=== PATIENT | male | born 1955 | race Two or more races ===

== ENCOUNTER 2020-12-20 16:22 | Emergency (ER) | payer OTHER ==
[~2020-12-20] VITALS: Ht 177.8 cm; Wt 78.5 kg
--- NOTE | 2020-12-20 16:40 | NUR ---
BIBSON FROM HOME C/O BLOOD/BLOOD CLOT IN URINE 2DAYS, URINARY RETENTION SINCE 10AM TODAY. AOX4, RR EVEN AND UNLABORED. SAFETY PRECAUTIONS INITIATED PER PROTOCOL
--- NOTE | 2020-12-20 16:45 | NUR ---
PA AT BEDSIDE
--- NOTE | 2020-12-20 17:22 | NUR ---
PT ATTEMPTED TO URINATE X3 WITH LITTLE BLOODY URINE OUTPUT
--- NOTE | 2020-12-20 17:37 | NUR ---
BLADDER SCAN OF 178ML
--- NOTE | 2020-12-20 18:08 | NUR ---
INSERTED F/C 18F WITH DARK HEMATURIA. ;PATENT AND INTACT. CHANGED TO LEG BAG. URINE COLLECTED AND SENT TO LAB
[2020-12-20 18:29] LABS: BILIRUBIN,URINE SMALL (NEGATIVE); COLOR,URINE RED (YELLOW); LEUKOCYTE ESTERASE ,URINE Negative (NEGATIVE); NITRITE, URINE Negative (NEGATIVE); PH,URINE 5.5 (5.0-8.0); PROTEIN,URINE >=300 mg/dl (NEGATIVE); UGLUCOSE >=1000 mg/dL (NEGATIVE); UROBILINOGEN,URINE 0.2 EU/dL (0.2)
[2020-12-20 18:42] LABS: BACTERIA,URINE None seen /HPF (None Seen); RBC,URINE TOO NUMEROUS TO COUN /HPF (0-2); WBC,URINE NONE SEEN /HPF (0-3)
--- NOTE | 2020-12-20 19:04 | NUR ---
TOTAL OF 1400 HEMATURIA OUTPUT. FLUSHED F/C WITH OUTPUT; NO BLOOD CLOTS NOTED . F/C PATENT AND INTACT. PT ambulatory with a steady gait. Patient discharged to home in stable condition. Written and verbal after care instructions given TO PT AND PT'S SON . Patient verbalizes understanding of instruction.
[2020-12-20 19:49] VITALS: BP 145/86
[2020-12-22] MEDS ORDERED: ONDANSETRON HCL/PF 4 MG/2 ML VIAL IVP PRN (13:00)
[2020-12-22] MEDS ORDERED: ZOLPIDEM TARTRATE 5 MG TABLET PO PRN (13:00)
[2020-12-22] MEDS ORDERED: MAG HYDROX/AL HYDROX/SIMETH 30 ML UDC PO PRN (13:00)
[2020-12-22] MEDS ORDERED: Z GUARD REMEDY 2 OZ OINT TP PRN (13:00)
[2020-12-22] MEDS ORDERED: HYDROCODONE/APAP 5/325MG TABLET PO PRN (13:00)
[2020-12-22] MEDS ORDERED: IV 1/2NS 1000 ML 1,000 ML IV PRN (13:00)
[2020-12-22] MEDS ORDERED: MAGNESIUM HYDROXIDE 30 ML UDC PO PRN (13:00)
[2020-12-22] MEDS ORDERED: ACETAMINOPHEN 325 MG TABLET PO PRN (13:00)
[2021-01-02] MEDS ORDERED: VANC750P9 IV (12:34)
== END 2020-12-20 19:11 | disposition home or self-care (01) ==
LOC: ER 17:55
DX: R33.9 Retention of urine, unspecified (principal); I10 Essential (primary) hypertension; E11.9 Type 2 diabetes mellitus without complications; N40.0 Benign prostatic hyperplasia without lower urinary tract symptoms
CPT/HCPCS: 76870-TC; 81001

== ENCOUNTER 2020-12-22 07:17 | Inpatient (IN) | payer OTHER ==
[~2020-12-22] VITALS: Ht 177.8 cm; Wt 75.7 kg
[2020-12-22 08:07] LABS: BASOPHILS % (AUTO) 0.1 % (0.0-2.0); HEMATOCRIT 41 % (39-51); HEMOGLOBIN 13.4 g/dL (13.5-17.5); LYMPHOCYTES # (AUTO) 0.8 K/uL (0.8-4.8); LYMPHOCYTES % (AUTO) 5.7 % (20.0-44.0); MEAN CORPUSCULAR HGB CONC 33 g/dl (31.0-36.0); MEAN CORPUSCULAR VOLUME 95 fL (80-96); MONOCYTES # (AUTO) 0.7 K/uL (0.1-1.30); MONOCYTES % (AUTO) 5.4 % (2.0-12.0); NEUTROPHILS % (AUTO) 88.8 % (43.0-81.0); PLATELET COUNT (AUTO) 239 K/uL (150-450); RED BLOOD CELL COUNT(AUTO) 4.27 MIL/uL (4.5-6.0); WHITE BLOOD COUNT (AUTO) 13.6 K/uL (4.3-11.0)
[2020-12-22] MEDS ORDERED: LIDOCAINE 2% JEL UROJET 10 ML MM ONE ×2 (08:11→08:30)
[2020-12-22 08:12] LABS: CALCIUM, SERUM 9.1 mg/dL (8.5-10.1); CREATININE 1.1 mg/dL (0.6-1.3); POTASSIUM 3.9 mmol/L (3.5-5.1)
[2020-12-22] MEDS ORDERED: TAMS-12 PO (08:44)
[2020-12-22] MEDS ORDERED: ASPI-1420 PO (08:44)
[2020-12-22] MEDS ORDERED: SEMA7TAB PO (08:44)
[2020-12-22] MEDS ORDERED: ERTU15TA PO (08:44)
[2020-12-22] MEDS ORDERED: ATOR10TA PO (08:44)
[2020-12-22] MEDS ORDERED: CLOP75TA15 PO (08:44)
[2020-12-22] MEDS ORDERED: ISOS60TA72 PO (08:44)
[2020-12-22] MEDS ORDERED: METF-442 PO (08:44)
[2020-12-22] MEDS ORDERED: AMLO-213 PO (08:44)
[2020-12-22] MEDS ORDERED: LOSA25TA27 PO (08:44)
[2020-12-22] MEDS ORDERED: CEFTRIAXONE 1GM BAG (ER ONLY) 50 ML IV ONE (08:55)
[2020-12-22] MEDS ORDERED: CEFTRIAXONE 1GM BAG (ER ONLY) 1 GM/50 ML PIGGYBACK IV ONE (09:00)
[2020-12-22 12:00] VITALS: BP 126/77
[2020-12-22 16:00] VITALS: BP 132/68
[2020-12-22 16:52] LABS: PROSTATE SPECIFIC ANTIGEN SCR 5.22 ng/mL (0.00-4.00)
[2020-12-22] MEDS ORDERED: SEMAGLUTIDE 7 MG PO SCH (19:30)
[2020-12-22] MEDS ORDERED: ZOLPIDEM TARTRATE 5 MG TABLET PO PRN (19:33)
[2020-12-22] MEDS ORDERED: Z GUARD REMEDY 2 OZ OINT TP PRN (19:33)
[2020-12-22] MEDS ORDERED: ONDANSETRON HCL/PF 4 MG/2 ML VIAL IVP PRN (19:33)
[2020-12-22] MEDS ORDERED: MAGNESIUM HYDROXIDE 30 ML UDC PO PRN (19:33)
[2020-12-22] MEDS ORDERED: IV 1/2NS 1000 ML 1,000 ML IV PRN (19:33)
[2020-12-22] MEDS ORDERED: HYDROCODONE/APAP 5/325MG TABLET PO PRN (19:33)
[2020-12-22] MEDS ORDERED: ACETAMINOPHEN 325 MG TABLET PO PRN (19:33)
[2020-12-22] MEDS ORDERED: MAG HYDROX/AL HYDROX/SIMETH 30 ML UDC PO PRN (19:33)
[2020-12-22 20:27] VITALS: BP 121/54
[2020-12-23 07:01] LABS: BASOPHILS % (AUTO) 0.2 % (0.0-2.0); EOSINOPHILS % (AUTO) 1.1 % (0.0-6.0); HEMATOCRIT 30 % (39-51); HEMOGLOBIN 10.5 g/dL (13.5-17.5); LYMPHOCYTES # (AUTO) 1.8 K/uL (0.8-4.8); LYMPHOCYTES % (AUTO) 27.4 % (20.0-44.0); MEAN CORPUSCULAR HGB CONC 35 g/dl (31.0-36.0); MEAN CORPUSCULAR VOLUME 94 fL (80-96); MONOCYTES # (AUTO) 0.5 K/uL (0.1-1.30); NEUTROPHILS # (AUTO) 4.2 K/uL (1.8-8.9); NEUTROPHILS % (AUTO) 63.3 % (43.0-81.0); PLATELET COUNT (AUTO) 219 K/uL (150-450); RED BLOOD CELL COUNT(AUTO) 3.23 MIL/uL (4.5-6.0); WHITE BLOOD COUNT (AUTO) 6.7 K/uL (4.3-11.0)
[2020-12-23 07:28] LABS: CALCIUM, SERUM 8.2 mg/dL (8.5-10.1); CREATININE 0.8 mg/dL (0.6-1.3); PHOSPHORUS 3.3 mg/dL (2.5-4.9); POTASSIUM 3.4 mmol/L (3.5-5.1)
[2020-12-23] MEDS ORDERED: PANTOPRAZOLE 40 MG TABLET.DR PO SCH (07:30)
[2020-12-23 07:54] LABS: THYROID STIMULATING HORMONE 1.041 uIU/mL (0.358-3.74)
[2020-12-23 08:00] VITALS: BP 116/59
[2020-12-23 08:18] VITALS: BP 116/69
[2020-12-23] MEDS ORDERED: Medication Not On Formulary EA (Ertugliflozin Pidolate (Steglatro) 15 MG) PO SCH (09:00)
[2020-12-23] MEDS ORDERED: AMLODIPINE BESYLATE 10 MG TABLET PO SCH (09:00)
[2020-12-23] MEDS ORDERED: METFORMIN 500 MG TABLET PO SCH (09:00)
[2020-12-23] MEDS ORDERED: ATORVASTATIN 10 MG TABLET PO SCH (09:00)
[2020-12-23] MEDS ORDERED: ISOSORBIDE MONONITRATE (30MG) 30 MG TAB.SR.24H PO SCH (09:00)
[2020-12-23] MEDS ORDERED: TAMSULOSIN 0.4 MG CAP.SR.24H PO SCH (09:00)
[2020-12-23] MEDS ORDERED: LOSARTAN POTASSIUM 25 MG TABLET PO SCH (09:00)
[2020-12-23] MEDS ORDERED: CLOPIDOGREL BISULFATE 75 MG TABLET PO SCH (09:00)
[2020-12-23] MEDS ORDERED: ASPIRIN EC 81 MG TABLET.DR PO SCH (09:00)
[2020-12-23] MEDS ORDERED: POTASSIUM CHLORIDE 20 MEQ TAB.PRT.SR PO SCH (10:00)
[2021-01-02] MEDS ORDERED: VANC750P9 IV (12:34)
== END 2020-12-23 13:30 | disposition home health service (06) | DRG 466 ==
LOC: ER 07:30 → MED 11:28
PROVIDERS: ATTEND Internal Medicine
DX: T83.098A Other mechanical complication of other urinary catheter, initial encounter (principal); E11.9 Type 2 diabetes mellitus without complications; R31.0 Gross hematuria; I10 Essential (primary) hypertension; K21.9 Gastro-esophageal reflux disease without esophagitis; N40.1 Benign prostatic hyperplasia with lower urinary tract symptoms; Z20.822 Contact with and (suspected) exposure to COVID-19; I25.10 Atherosclerotic heart disease of native coronary artery without angina pectoris; R33.8 Other retention of urine; Z98.61 Coronary angioplasty status; Z86.73 Personal history of transient ischemic attack (TIA), and cerebral infarction without residual deficits; Z98.890 Other specified postprocedural states; E78.5 Hyperlipidemia, unspecified; Y84.8 Other medical procedures as the cause of abnormal reaction of the patient, or of later complication, without mention of misadventure at the time of the procedure; Y92.009 Unspecified place in unspecified non-institutional (private) residence as the place of occurrence of the external cause
CPT/HCPCS: 36415; 80048-TC; 80061-TC; 83735-TC; 84100-TC; 84153-TC; 84154-TC; 84443-TC; 85025-TC; 87081-TC; 97116-TC; 97530-TC; A4217; G0378; J0696; J3490

== ENCOUNTER 2020-12-29 21:53 | Inpatient (IN) | payer OTHER ==
[~2020-12-29] VITALS: Ht 177.8 cm; Wt 80.7 kg
[~2020-12-29 21:53] MED LIST: AMLO-213 PO; ASPI-1420 PO; ATOR10TA PO; CLOP75TA15 PO; ERTU15TA PO; ISOS60TA72 PO; LOSA25TA27 PO; METF-442 PO; SEMA7TAB PO; TAMS-12 PO
--- NOTE | 2020-12-29 22:00 | NUR ---
[id number]. FEVER, CHILLS AND TACHYCARDIC TEMP 102.1 HR 142. PT A/OX3. TOLERATING R/A WELL. CONNTECTED PT TO TELE MONITOR AND POX. COOLING AND SAFETY MEASURES IN PLACE
[2020-12-29] MEDS ORDERED: ACETAMINOPHEN ES 500 MG TABLET ONE ×2 (22:27)
[2020-12-29] MEDS ORDERED: IV NS 0.9% 1,000 ML BAG IV ONE ×2 (22:30→23:30)
[2020-12-29] MEDS ORDERED: ACETAMINOPHEN ES 500 MG TABLET PO ONE (22:30)
--- NOTE | 2020-12-29 22:30 | NUR ---
ETL DATABASE DEVELOPER AT PT'S BEDSIDE
--- NOTE | 2020-12-29 22:46 | NUR ---
MORTGAGE PROFESSIONAL LAC #18G S/L; PATENT AND INTACT
[2020-12-29 22:47] LABS: BASOPHILS % (AUTO) 0.4 % (0.0-2.0); EOSINOPHILS % (AUTO) 0.2 % (0.0-6.0); HEMATOCRIT 31 % (39-51); HEMOGLOBIN 10.2 g/dL (13.5-17.5); LYMPHOCYTES # (AUTO) 0.3 K/uL (0.8-4.8); LYMPHOCYTES % (AUTO) 4.2 % (20.0-44.0); MEAN CORPUSCULAR HGB CONC 33 g/dl (31.0-36.0); MEAN CORPUSCULAR VOLUME 96 fL (80-96); MONOCYTES # (AUTO) 0.1 K/uL (0.1-1.30); MONOCYTES % (AUTO) 0.8 % (2.0-12.0); NEUTROPHILS # (AUTO) 6.6 K/uL (1.8-8.9); NEUTROPHILS % (AUTO) 94.4 % (43.0-81.0); PLATELET COUNT (AUTO) 348 K/uL (150-450); RED BLOOD CELL COUNT(AUTO) 3.22 MIL/uL (4.5-6.0)
[2020-12-29 23:14] LABS: ALANINE AMINOTRANSFERASE 30 U/L (12-78); ALBUMIN 3.7 g/dL (3.4-5.0); ALKALINE PHOSPHATASE 72 U/L (46-116); ASPARTATE AMINOTRANSFERASE 18 U/L (15-37); BILIRUBIN,DIRECT 0.1 mg/dL (0.0-0.2); BILIRUBIN,TOTAL 0.4 mg/dL (0.2-1.0); CALCIUM, SERUM 8.2 mg/dL (8.5-10.1); CARBON DIOXIDE 25 mmol/L (21-32); CHLORIDE 105 mmol/L (98-107); GLUCOSE 216 mg/dL (74-106); POTASSIUM 3.9 mmol/L (3.5-5.1); SODIUM SERUM 139 mmol/L (136-145); TOTAL PROTEIN, SERUM 7.1 g/dL (6.4-8.2); UREA NITROGEN, BLOOD 15 mg/dL (7-18)
--- NOTE | 2020-12-29 23:21 | NUR ---
MANAGER BATTERY AT PT'S BEDSIDE
[2020-12-29] MEDS ORDERED: LIDOCAINE 2% JEL UROJET 10 ML MM ONE (23:24)
[2020-12-29] MEDS ORDERED: CEFTRIAXONE 1GM BAG (ER ONLY) 50 ML IV ONE (23:30)
--- NOTE | 2020-12-29 23:30 | NUR ---
SNACK BAR COOK AT BED SIDE; COLLECTED BLOOK WORK. URINE SAMMPLE AND COVID SWAB TAKEN VIA PHOTOVOLTAIC FABRICATION TECHNICIAN COLLECTED AND GIVEN TO LAB
--- NOTE | 2020-12-29 23:47 | NUR ---
INSERTED F/C 16FR WITH CLEAR YELLOW URINE OUTPUT.
[2020-12-30 00:05] LABS: BILIRUBIN,URINE NEGATIVE (NEGATIVE); COLOR,URINE YELLOW (YELLOW); LEUKOCYTE ESTERASE ,URINE NEGATIVE (NEGATIVE); NITRITE, URINE NEGATIVE (NEGATIVE); PH,URINE 5.5 (5.0-8.0); PROTEIN,URINE NEGATIVE (NEGATIVE); UGLUCOSE >=1000 mg/dL (NEGATIVE); UROBILINOGEN,URINE 0.2 EU/dL (0.2)
[2020-12-30] MEDS ORDERED: CEFTRIAXONE 1GM BAG (ER ONLY) 50 ML IV ONE (00:11)
[2020-12-30] MEDS ORDERED: IV NS 0.9% 500 ML BAG IV ONE (00:30)
[2020-12-30 00:46] LABS: BACTERIA,URINE None seen /HPF (None Seen); RBC,URINE 0-2 /HPF (0-2); SQUAMOUS EPITHELIAL CELL,UR Few /HPF (None Seen); WBC,URINE 0-2 /HPF (0-3)
--- NOTE | 2020-12-30 01:17 | NUR ---
DR DARLING ON THE PHONE W/ DR PATEL
--- NOTE | 2020-12-30 01:17 | NUR ---
called house sup for tele bed
[2020-12-30] MEDS ORDERED: IOHEXOL-300 100 ML VIAL IV ONE (01:20)
[2020-12-30] MEDS ORDERED: CT SWABBABLE VALVE TRANS SET 1 EA INFUS.SET MC ONE (01:20)
[2020-12-30] MEDS ORDERED: IV NS 0.9% 250 ML IV ONE (01:20)
[2020-12-30] MEDS ORDERED: MAGNESIUM HYDROXIDE 30 ML UDC PO PRN (01:30)
[2020-12-30] MEDS ORDERED: Z GUARD REMEDY 2 OZ OINT TP PRN (01:30)
[2020-12-30] MEDS ORDERED: MAG HYDROX/AL HYDROX/SIMETH 30 ML UDC PO PRN (01:30)
[2020-12-30] MEDS ORDERED: ACETAMINOPHEN 325 MG TABLET PO PRN (01:30)
[2020-12-30] MEDS ORDERED: ZOLPIDEM TARTRATE 5 MG TABLET PO PRN (01:30)
[2020-12-30] MEDS ORDERED: ONDANSETRON HCL/PF 4 MG/2 ML VIAL IVP PRN (01:30)
--- NOTE | 2020-12-30 01:55 | NUR ---
back from CT
--- NOTE | 2020-12-30 02:35 | NUR ---
TELE 329 REPORT GIVEN
--- NOTE | 2020-12-30 02:37 | NUR ---
MRSA SWAB COLLECTED AND SENT TO LAB. PATIENT'S BELONGINGS LIST DONE.
--- NOTE | 2020-12-30 02:55 | NUR ---
PT TRANSFERRED TO [facility] VIA ACLS PROTOCOL
--- NOTE | 2020-12-30 02:56 | NUR ---
RN ADMITTING NOTE REPORT GIVEN BY RONY GROVES. PATIENT RECEIVED VIA GURNEY TO RM 329-1 BEING ADMITTED TO TELE FOR SEPSIS. PATIENT IS A/O X 4, PATIENT UNDERSTANDS SOME DIVEHI BUT MOSTLY FARSI/AFGHAN. PATIENT IS ON RA, TOLERATING WELL, NOT IN ANY APPARENT DISTRESS. TELE MONITOR READS SINUS TACH 112 BPM. PATIENT HAS A PRIDE PLACED IN THE ER, DRAINING YELLOW URINE. PATIENT HAS INDEPENDENT MOBILITY IN BED, SKIN IS INTACT. PATIENT HAS A RAC 18 G, PATENT AND INTACT. DOES NOT REPORT ANY PAIN AT THIS TIME. BELONGINGS INVENTORIED. ORIENTED PATIENT TO ROOM, RN, WELDING MACHINE OPERATOR GAS, AND CHARGE NURSE. PATIENT WISHES TO BE FULL CODE. SAFETY MEASURES IN PLACE: CALL LIGHT WITHIN REACH, SIDE RAILS UP, BED LOCKED AND IN LOWEST POSITION. WILL MONITOR PATIENT CLOSELY.
[2020-12-30] MEDS: IV NS 0.9% 1,000 ML IV PRN ×3 (03:21→20:46)
[2020-12-30 04:00] VITALS: BP 116/59
--- NOTE | 2020-12-30 06:18 | NUR ---
DR. PATEL HAS ORDERED ACCUCHECK ACHS, PATIENT NPO
[2020-12-30] MEDS ORDERED: DEXTROSE 50%-WATER 50 ML DISP.SYRIN IV PRN (06:30)
--- NOTE | 2020-12-30 06:51 | NUR ---
RN CLOSING NOTE PATIENT IN BED, ASLEEP. EASILY AROUSED. PATIENT TOLERATING ROOM AIR, NOT IN ANY APPARENT DISTRESS. NO REPORTS OF PAIN OR DISCOMFORT. LAC 18 G PATENT AND INTACT, RUNNING NS @ 125 ML/HR. SAFETY MEASURES IN PLACE: BED LOCKED AND IN LOWEST POSITION, CALL LIGHT WITHIN REACH, SIDE RAILS UP. BS 137 MG/DL, NO COVERAGE GIVEN D/T NPO STATUS. NPO STATUS MAINTAINED. WILL ENDORSE TO DAY SHIFT NURSE FOR MALVIN. Addendum: 12/30/20 at 0654 by ART LARSEN RN TELE MONITOR READS ST 101 BPM.
--- NOTE | 2020-12-30 07:00 | NUR ---
EMR SPECIALIST OPENING NOTES: PATIENT IN AWAKE,ALERT AND ORIENTED X 4.DENIES PAIN AND DISCOMFORT,NOT IN ANY DISTRESS.CALL LIGHT WITHIN REACH,SAFETY MEASURES IN PLACE.WITH ON GOING IVF OF NS AT 125ML/HR ON THE LEFT AC 18 GAUGE.PLACED ON NPO FOR NOW,PRIDE CATH DRAINING WELL WITH LIGHT YELLOW URINE OUTPUT.REMAINS ON IV ANTIBIOTICS ORDERED.WE WILL CONTINUE TO MONITOR.
[2020-12-30] MEDS: BLOOD SUGAR DIAGNOSTIC 1 EACH STRIP IN SCH ×4 (07:30→22:03)
[2020-12-30 08:00] VITALS: BP 111/63
[2020-12-30] MEDS: PANTOPRAZOLE 40 MG TABLET.DR PO SCH (08:44)
[2020-12-30 12:00] VITALS: BP 140/68
[2020-12-30 13:09] LABS: BASOPHILS % (AUTO) 0.1 % (0.0-2.0); HEMATOCRIT 31 % (39-51); HEMOGLOBIN 10.4 g/dL (13.5-17.5); LYMPHOCYTES # (AUTO) 0.5 K/uL (0.8-4.8); MEAN CORPUSCULAR HGB CONC 33 g/dl (31.0-36.0); MEAN CORPUSCULAR VOLUME 97 fL (80-96); MONOCYTES # (AUTO) 0.4 K/uL (0.1-1.30); MONOCYTES % (AUTO) 2.4 % (2.0-12.0); NEUTROPHILS # (AUTO) 15.5 K/uL (1.8-8.9); NEUTROPHILS % (AUTO) 94.5 % (43.0-81.0); PLATELET COUNT (AUTO) 305 K/uL (150-450); RED BLOOD CELL COUNT(AUTO) 3.23 MIL/uL (4.5-6.0); WHITE BLOOD COUNT (AUTO) 16.4 K/uL (4.3-11.0)
[2020-12-30 13:28] LABS: ALBUMIN 3.4 g/dL (3.4-5.0); BILIRUBIN,DIRECT 0.1 mg/dL (0.0-0.2); BILIRUBIN,TOTAL 0.6 mg/dL (0.2-1.0); CALCIUM, SERUM 8.1 mg/dL (8.5-10.1); CREATININE 0.8 mg/dL (0.6-1.3); POTASSIUM 4.2 mmol/L (3.5-5.1); TOTAL PROTEIN, SERUM 6.8 g/dL (6.4-8.2)
[2020-12-30] MEDS ORDERED: ZOSYN IVPB 3.375 G in IV D5W 50ml IV ONE (14:00)
[2020-12-30 16:00] VITALS: BP 131/68
--- NOTE | 2020-12-30 19:30 | NUR ---
BREAKER OILER OPENING NOTES PATIENT RESTING IN BED, ALERT/ORIENTED X 4, PRIMARILY LAO/FARSI SPEAKING BUT ABLE TO UNDERSTAND/SPEAK SOME [place] ISLANDER. PT DENIES PAIN AT THIS TIME. PT STABLE ON RA, NO S/S OF DISTRESS OR SOB NOTED, BREATHING EVEN AND UNLABORED. PT ON EXTERNAL INTERIOR DESIGN CONSULTANT READING SINUS TACHYCARDIA, HR: 106. IV ACCESS ON LEFT AC #18G INTACT AND RUNNING NS @125 ML/HR. PRIDE CATHETER INTACT AND DRAINING CLEAR YELLOW URINE. SAFETY MEASURES IN PLACE: CALL LIGHT AND TABLE WITHIN REACH, SIDE RAILS UP X 2, BED LOCKED IN LOW POSITION. WILL CONTINUE TO MONITOR PATIENT
[2020-12-30 20:08] VITALS: BP 138/71
[2020-12-30] MEDS: PIPERACILLIN /TAZOBACTAM 3.375 G in IV D5W 100 ML IV SCH (20:46)
[2020-12-30] MEDS ORDERED: CEFTRIAXONE 1 G in IV D5W 50 ML IV SCH (21:00)
[2020-12-31 00:08] VITALS: BP 126/67
[2020-12-31 04:28] VITALS: BP 132/68
[2020-12-31] MEDS: PIPERACILLIN /TAZOBACTAM 3.375 G in IV D5W 100 ML IV SCH ×3 (05:09→20:30)
--- NOTE | 2020-12-31 07:16 | NUR ---
TOLL OPERATOR OPENING NOTES RECEIVED PATIENT IN BED AWAKE, ALERT/ORIENTED X 4. NOT IN ANY DISTRESS, DENIES PAIN AND DISCOMFORT AT THIS TIME. PATIENT IS ON ROOM AIR WITH EQUAL AND UNLABORED BREATHING. WITH RIGHT HAND IV ACCESS G22 WITH IVF OF NS RUNNIGN AT 125 ML/HR, INFUSING WELL. SAFETY MNEASURES ENSURED WITH BED AT LOWEST LOCKED POSITION, SIDERAILS RAISED. CALL LIGHT AND TABLE WITHIN REACH. WILL CONTINUE TO MONITOR PATIENT.
[2020-12-31 07:32] LABS: BASOPHILS % (AUTO) 0.2 % (0.0-2.0); EOSINOPHILS % (AUTO) 0.1 % (0.0-6.0); HEMATOCRIT 29 % (39-51); HEMOGLOBIN 10.2 g/dL (13.5-17.5); LYMPHOCYTES # (AUTO) 0.8 K/uL (0.8-4.8); LYMPHOCYTES % (AUTO) 7.5 % (20.0-44.0); MEAN CORPUSCULAR HGB CONC 35 g/dl (31.0-36.0); MEAN CORPUSCULAR VOLUME 94 fL (80-96); MONOCYTES # (AUTO) 0.5 K/uL (0.1-1.30); NEUTROPHILS % (AUTO) 87.2 % (43.0-81.0); PLATELET COUNT (AUTO) 276 K/uL (150-450); RED BLOOD CELL COUNT(AUTO) 3.11 MIL/uL (4.5-6.0); WHITE BLOOD COUNT (AUTO) 10.4 K/uL (4.3-11.0)
[2020-12-31 07:43] LABS: MAGNESIUM 2.2 mg/dL (1.8-2.4); PHOSPHORUS 2.9 mg/dL (2.5-4.9); POTASSIUM 3.7 mmol/L (3.5-5.1)
[2020-12-31 07:52] LABS: THYROID STIMULATING HORMONE 1.373 uIU/mL (0.358-3.74)
[2020-12-31 08:00] VITALS: BP 114/62
[2020-12-31] MEDS: PANTOPRAZOLE 40 MG TABLET.DR PO SCH (08:20)
[2020-12-31] MEDS: BLOOD SUGAR DIAGNOSTIC 1 EACH STRIP IN SCH ×4 (08:23→22:10)
[2020-12-31] MEDS ORDERED: VANCOMYCIN 1.5 GM in IV D5W 500 ML IV ONE (13:00)
[2020-12-31 16:00] VITALS: BP 120/68
[2020-12-31] MEDS: IV NS 0.9% 1,000 ML IV PRN (17:54)
--- NOTE | 2020-12-31 18:52 | NUR ---
TRUCK JUMPER OPENING NOTES PATIENT IN BED AWAKE, ALERT/ORIENTED X 4. NOT IN ANY DISTRESS, DENIES PAIN AND DISCOMFORT AT THIS TIME. PATIENT IS ON ROOM AIR WITH EQUAL AND UNLABORED BREATHING. WITH RIGHT HAND IV ACCESS G22 WITH IVF OF NS RUNNING AT 125 ML/HR, INFUSING WELL. SAFETY MNEASURES ENSURED WITH BED AT LOWEST LOCKED POSITION, SIDERAILS RAISED. CALL LIGHT AND TABLE WITHIN REACH. WILL ENDORSE PATIENT FOR CONTINUITY OF CARE.
--- NOTE | 2020-12-31 20:00 | NUR ---
GRADES 1 THROUGH 6 TEACHER OPENING NOTES PATIENT RESTING IN BED, ALERT/ORIENTED X 4, PRIMARILY FARSI SPEAKING BUT ABLE TO UNDERSTAND/SPEAK SOME FRISIAN. PT DENIES PAIN AT THIS TIME. PT STABLE ON RA, NO S/S OF DISTRESS OR SOB NOTED, BREATHING EVEN AND UNLABORED. PT ON EXTERNAL CONSERVATION ENFORCEMENT OFFICER READING SINUS RHYTHM, HR: 88. IV ACCESS ON RIGHT HAND #22G INTACT AND RUNNING NS @125 ML/HR. PRIDE CATHETER INTACT AND DRAINING CLEAR YELLOW URINE. SAFETY MEASURES IN PLACE: CALL LIGHT AND TABLE WITHIN REACH, SIDE RAILS UP X 2, BED LOCKED IN LOW POSITION. WILL CONTINUE TO MONITOR PATIENT
[2020-12-31 20:07] VITALS: BP 120/65
[2021-01-01 00:33] VITALS: BP 127/66
[2021-01-01] MEDS: VANCOMYCIN 1.25 GM in IV D5W 250 ML IV SCH ×2 (01:16→12:20)
[2021-01-01 04:44] VITALS: BP 125/65
[2021-01-01] MEDS: PIPERACILLIN /TAZOBACTAM 3.375 G in IV D5W 100 ML IV SCH ×2 (05:26→12:14)
--- NOTE | 2021-01-01 07:00 | NUR ---
STATISTICAL PROGRAMMER ANALYST CLOSING NOTES PT AWAKE IN BED, ALERT/ORIENTED X 4, NO SIGNIFICANT CHANGES THROUGHOUT SHIFT. PT STABLE ON RA, NO S/S OF DISTRESS OR SOB NOTED, BREATHING EVEN AND UNLABORED. MEDICATIONS GIVEN ORDERED, PT NEEDS MET THROUGHOUT SHIFT. SAFETY MEASURES IN PLACE: CALL LIGHT WITHIN REACH, BED LOCKED IN LOW POSITION, SIDE RAILS UP X 2, BED ALARM ON. ENDORSE TO DAY SHIFT NURSE FOR CONTINUITY OF CARE
[2021-01-01] MEDS: BLOOD SUGAR DIAGNOSTIC 1 EACH STRIP IN SCH ×4 (07:06→21:37)
[2021-01-01 07:27] LABS: CALCIUM, SERUM 8.1 mg/dL (8.5-10.1); CREATININE 0.8 mg/dL (0.6-1.3); POTASSIUM 3.6 mmol/L (3.5-5.1)
--- NOTE | 2021-01-01 07:34 | NUR ---
CUSTOMER QUALITY ENGINEER OPENING NOTES PATIENT IS ASLEEP IN BED, EASY TO AROUSE. ALERT AND ORIENTED X4, FARSI SPEAKING. NO SOB. NO S/SX OF DISTRESS NOTED. BREATHING IS EVEN AND UNLABORED. PT ON ROOM AIR, TOLERATING WELL. IV ACCESS RHAND#22 PATENT AND INTACT. PT WITH EXTERNAL RESTAURANT AND BAR MANAGER WITH SR READING IN 80'S. SAFETY MEASURES IN PLACE WITH BED LOCKED AT LOW POSITION AND SIDE RAILS UP X2. CALL LIGHT IS WITHIN REACH. WILL CONTINUE TO MONITOR THROUGHOUT SHIFT.
[2021-01-01] MEDS ORDERED: VANCOMYCIN 1.25 GM in IV D5W 250 ML IV SCH (08:00)
[2021-01-01] MEDS: PANTOPRAZOLE 40 MG TABLET.DR PO SCH (08:16)
[2021-01-01] MEDS: IV NS 0.9% 1,000 ML IV PRN (17:08)
--- NOTE | 2021-01-01 19:12 | NUR ---
ADMINISTRATIVE SUPPORT ASSOC CLOSING NOTES PATIENT IS RESTING COMFORTABLY IN BED. NO SOB. NO S/SX OF DISTRESS NOTED. BREATHING IS EVEN AND UNLABORED. PT ON ROOM AIR, TOLERATING WELL. IV ACCESS RHAND#22 PATENT AND INTACT WITH NS 0.9 INFUSING. EXTERNAL DESIGN CENTER CONSULTANT WITH SR READING IN 80'S. SAFETY MEASURES MAINTAINED. ALL NEEDS MET THROUGHOUT SHIFT. WILL ENDORSE CONTINUITY OF CARE TO ONCOMING SHIFT.
--- NOTE | 2021-01-01 19:45 | NUR ---
MUCK BOSS OPENING NOTES PATIENT IS ASLEEP IN BED, EASY TO AROUSE. ALERT AND ORIENTED X4, FARSI SPEAKING. NO SOB.. BREATHING IS EVEN AND UNLABORED. PT ON ROOM AIR, TOLERATING WELL. IV ACCESS R HAND#22 PATENT AND INTACT. PT. WITH F.C, DRAINING YELLOWISH URINE, INTACT .PT WITH EXTERNAL BOX CAR LOADER WITH SR READING IS 87. SAFETY MEASURES IN PLACE WITH BED LOCKED AT LOW POSITION AND SIDE RAILS UP X2. CALL LIGHT IS WITHIN EASY REACH. WILL CONTINUE TO MONITOR THROUGHOUT SHIFT.
[2021-01-01 20:23] VITALS: BP 141/68
[2021-01-02] VITALS: BP 118/48
--- NOTE | 2021-01-02 02:00 | NUR ---
RN NOTES VANCO THROUGH CAME IN LATE RESULT IS 12, VANCOMYCIN INFUSED ORDERED.
[2021-01-02] MEDS: VANCOMYCIN 1.25 GM in IV D5W 250 ML IV SCH ×2 (02:02→13:18)
[2021-01-02 05:11] VITALS: BP 130/95
[2021-01-02] MEDS: BLOOD SUGAR DIAGNOSTIC 1 EACH STRIP IN SCH ×4 (05:47→22:51)
--- NOTE | 2021-01-02 06:27 | NUR ---
JAVA SCALA DEVELOPER CLOSING NOTES PT AWAKE IN BED, ALERT/ORIENTED X 4, NO SIGNIFICANT CHANGES THROUGHOUT SHIFT. PT STABLE ON RA, NO S/S OF DISTRESS OR SOB NOTED, BREATHING EVEN AND UNLABORED. PATIENT WITH IVF NS AT 125 ML/HR, INFUSING WELL. PT. WITH F.C INTACT AND DRAINING YELLOWISH URINE.MEDICATIONS GIVEN ORDERED, PT NEEDS MET THROUGHOUT SHIFT. SAFETY MEASURES IN PLACE. CALL LIGHT WITHIN REACH, BED LOCKED IN LOW POSITION, SIDE RAILS UP X 2, BED ALARM ON. ENDORSE TO DAY SHIFT NURSE FOR CONTINUITY OF CARE
[2021-01-02] MEDS: IV NS 0.9% 1,000 ML IV PRN (06:53)
--- NOTE | 2021-01-02 07:30 | NUR ---
WIRING TECHNICIAN OPENING NOTES RECEIVED PATIENT AWAKE IN BED. ALERT AND ORIENTED X4, FARSI SPEAKING. ABLE TO MAKE NEEDS KNOWN. NO SOB, NO RESPIRATORY DISTRESS NOTED. BREATHING IS EVEN AND UNLABORED. PT ON ROOM AIR, TOLERATING WELL. IV ACCESS R HAND#22 PATENT AND INTACT. PT. WITH F.C, DRAINING YELLOWISH URINE, INTACT .PT WITH EXTERNAL AQUACULTURE AND FISHERIES PROFESSOR WITH SR =90. SAFETY MEASURES IN PLACE . BED LOCKED AT LOW POSITION AND SIDE RAILS UP X2. CALL LIGHT AND TABLE WITHIN EASY REACH. WILL CONTINUE TO MONITOR .
[2021-01-02] MEDS: PANTOPRAZOLE 40 MG TABLET.DR PO SCH (07:37)
[2021-01-02 08:00] VITALS: BP 146/73
[2021-01-02 08:00] LABS: BASOPHILS % (AUTO) 0.2 % (0.0-2.0); EOSINOPHILS % (AUTO) 0.2 % (0.0-6.0); HEMATOCRIT 30 % (39-51); HEMOGLOBIN 10.3 g/dL (13.5-17.5); LYMPHOCYTES # (AUTO) 1.4 K/uL (0.8-4.8); LYMPHOCYTES % (AUTO) 13.3 % (20.0-44.0); MEAN CORPUSCULAR HGB CONC 34 g/dl (31.0-36.0); MEAN CORPUSCULAR VOLUME 92 fL (80-96); MONOCYTES # (AUTO) 0.7 K/uL (0.1-1.30); NEUTROPHILS # (AUTO) 8.1 K/uL (1.8-8.9); NEUTROPHILS % (AUTO) 79.3 % (43.0-81.0); PLATELET COUNT (AUTO) 307 K/uL (150-450); RED BLOOD CELL COUNT(AUTO) 3.25 MIL/uL (4.5-6.0); WHITE BLOOD COUNT (AUTO) 10.2 K/uL (4.3-11.0)
[2021-01-02 08:58] LABS: CREATININE 0.7 mg/dL (0.6-1.3); PHOSPHORUS 2.9 mg/dL (2.5-4.9); POTASSIUM 3.8 mmol/L (3.5-5.1)
--- NOTE | 2021-01-02 12:29 | NUR ---
RN NOTES BLOOD SUGAR CHECKED, 155 MG/DL. NO INSULIN COVERAGE NEEDED.
[2021-01-02] MEDS ORDERED: VANC750P9 IV (12:34)
--- NOTE | 2021-01-02 15:52 | NUR ---
RN NOTES FOR PICC LINE INSERTION PRIOR TO DISCHARGE. PATIENT WILL BE ON IV VANCO Q12 X 14 DAYS.
--- NOTE | 2021-01-02 18:30 | NUR ---
VET TECH CLOSING NOTES PATIENT AWAKE IN BED. ALERT AND ORIENTED X4, FARSI SPEAKING. ABLE TO MAKE NEEDS KNOWN. NO SOB, NO RESPIRATORY DISTRESS NOTED. BREATHING IS EVEN AND UNLABORED. PT ON ROOM AIR, TOLERATING WELL. IV ACCESS R HAND#22 PATENT AND INTACT. PT. WITH F.C, DRAINING YELLOWISH URINE, INTACT .PT WITH EXTERNAL COLD REDUCTION ROLLER WITH SR =90. ALL DUE MEDS GIVEN ORDERED.SAFETY MEASURES IN PLACE . BED LOCKED AT LOW POSITION AND SIDE RAILS UP X2. CALL LIGHT AND TABLE WITHIN EASY REACH. WILL ENDORSE TO ONCOMING SHIFT NURSE FOR MALVIN .
--- NOTE | 2021-01-02 19:47 | NUR ---
CANE FLUME WATCHER OPENING PATIENT IN BED, A/OX4. NO S/S OF APPARENT DISTRESS. DENIES PAIN. TELE MONITOR READING NSR AT 93 BPM. NO FLUIDS RUNNING AT THIS TIME. SAFETY IN PLACE. WILL CONTINUE TO MONITOR. PATIENT EXPECTED FOR D/C TONIGHT HOME WITH HOME HEALTH AFTER PICC LINE INSERTION.
[2021-01-02 20:00] VITALS: BP 140/79
--- NOTE | 2021-01-02 22:23 | NUR ---
PRINCIPAL SECRETARY NOTE TALKED TO GRUPO HATCH RN.. PER GRUPO MIDLINE WOULD DO FOR PATIENT SINCE IT IS ONLY FOR 14 DAYS. PER GRUPO JUST PUT IN THE ORDER FOR THE MIDLINE INSERTION AND HE WILL TALK TO BHUPINDER MENDOZA WHO PUT IN THE ORDER. I PUT IN THE ORDER FOR THE MIDLINE INSERTION BUT HAVE NOT YET CANCELLED THE ONE FOR THE PICC LINE. WILL DO SO WHEN GRUPO IS HERE.
--- NOTE | 2021-01-02 23:12 | NUR ---
BRIMMING MACHINE OPERATOR NOTE GRUPO AT THE BED SIDE AT THIS TIME FOR MIDLINE INSERTION. PER GRUPO ROE KNOWS AND AGREES FOR MIDLINE INSTEAD OF PICC.
--- NOTE | 2021-01-02 23:15 | NUR ---
ANTHROPOLOGY LECTURER NOTE TALKED TO PATIENT IF HE WANTS TO STAY THE NIGHT BUT IT MIGHT BE ADDITIONAL PAYMENT SINCE INSURANCE MIGHT NOT COVER, ENDORSED TO ME BY ANTONIO MARLOW. PER PATIENT HE WANTS TO GO HOME. CALLED SON FOR PICK-UP. TELE MONITOR BOX TAKEN OFF OF PATIENT. PRIDE CATHETER EMPTIED. PATIENT WILL GET DRESSED AND BE READY TO GO HOME.
--- NOTE | 2021-01-02 23:45 | NUR ---
CHIP BIN CONVEYOR TENDER NOTE PATIENT ROLLED DOWN AT THIS TIME VIA WHEELCHAIR, ACCOMPANIED BY GARRY LEONARDO. SONKASSI CAME FOR ORDER PROCESSING SPECIALIST VIA PRIVATE TRANSPORTATION. PATIENT GOING HOME WITH PRIDE, PATIENT AND SON AWARE. PATIENT ACKNOWLEDGE THAT HE IS GOING TO SEE UROLOGIST A WEEK LATER. PATIENT GOING HOME WITH L.UA MIDLINE 18 G. ENDORSED TO ME BY MORNING RNELE THAT MEDICATION PRESCRIPTION SENT TO PHARMACY ALREADY, PATIENT AND SON AWARE ABOUT HOME HEALTH AND MEDICATION. PATIENT SIGNED DISCHARGED PAPER WORKS AND BELONGINGS SIGNED FOR. D/C PACKET GIVEN TO SEAMUS SOLITARIO. ID BAND TAKEN OFF AND DISCARDED. PERIPHERAL IV DISCARDED. ALL BELONGINGS WITH PATIENT. PATIENT IN STABLE CONDITION AT DISCHARGED.
== END 2021-01-02 23:45 | disposition home or self-care (01) | DRG 720 ==
LOC: ER 22:06 → TELE 12-30 02:37
PROVIDERS: ADMIT Nurse Practitioner Acute Care; ATTEND Nurse Practitioner Acute Care
PROC: 05HC33Z Insertion of Infusion Device into Left Basilic Vein, Percutaneous Approach (ICD-10-PCS; principal; 2021-01-02)
DX: A41.9 Sepsis, unspecified organism (principal); N12 Tubulo-interstitial nephritis, not specified as acute or chronic; E11.9 Type 2 diabetes mellitus without complications; I10 Essential (primary) hypertension; N40.1 Benign prostatic hyperplasia with lower urinary tract symptoms; R31.0 Gross hematuria; K21.9 Gastro-esophageal reflux disease without esophagitis; N20.0 Calculus of kidney; Z20.822 Contact with and (suspected) exposure to COVID-19; Z95.5 Presence of coronary angioplasty implant and graft; I25.10 Atherosclerotic heart disease of native coronary artery without angina pectoris; Z79.899 Other long term (current) drug therapy; Z98.890 Other specified postprocedural states; Z79.82 Long term (current) use of aspirin; Z79.02 Long term (current) use of antithrombotics/antiplatelets; Z86.73 Personal history of transient ischemic attack (TIA), and cerebral infarction without residual deficits; Z79.84 Long term (current) use of oral hypoglycemic drugs; E78.5 Hyperlipidemia, unspecified; N30.90 Cystitis, unspecified without hematuria; B95.7 Other staphylococcus as the cause of diseases classified elsewhere
CPT/HCPCS: 36415; 71045-TC; 76700-TC; 80048-TC; 80053-TC; 80076-TC; 80202-TC; 81001; 82150-TC; 82962-TC; 83605-TC; 83690-TC; 83735-TC; 84100-TC; 84443-TC; 84484-TC; 85025-TC; 85730-TC; 86803; 87040-TC; 87081-TC; 87086-TC; 87186-TC; 87806; C9803; G0378; J0696; J2543; J3370; J3490; J7030; J7040; J7050; J7060; Q9967

== ENCOUNTER 2021-01-21 10:21 | Emergency (ER) | payer OTHER ==
[~2021-01-21] VITALS: Ht 170.2 cm; Wt 74.8 kg
[~2021-01-21 10:21] MED LIST changes: +VANC750P9 IV
[2021-01-21 10:56] VITALS: BP 134/81
--- NOTE | 2021-01-21 10:58 | NUR ---
Midline removed, dressing placed
== END 2021-01-21 11:04 | disposition home or self-care (01) ==
LOC: ER 10:54
DX: Z45.2 Encounter for adjustment and management of vascular access device (principal); I10 Essential (primary) hypertension; E11.9 Type 2 diabetes mellitus without complications; Z98.890 Other specified postprocedural states; Z79.82 Long term (current) use of aspirin; Z79.899 Other long term (current) drug therapy; Z79.84 Long term (current) use of oral hypoglycemic drugs

== ENCOUNTER 2021-09-06 13:16 | Inpatient (IN) | payer MEDICARE, OTHER ==
[~2021-09-06] VITALS: Ht 170.2 cm; Wt 80.3 kg
--- NOTE | 2021-09-06 13:26 | NUR ---
[id number] FROM HOME C/O GENERALIZED WEAKNESS, TACHY AND WARM TO TOUCH DIRECTOR PART. BG 227 DIRECTOR PART. PLACED ON BED, AA0X4, WARM TO TOUCH, ATTACHED TO MONITOR SINUS TACHY. NH-117, BREATHING EVEN AND UNLABORED.
--- NOTE | 2021-09-06 13:29 | NUR ---
IV LINE IS ESTABLISHED, BLOOD SPECIMEN COLLECTED AND SENT TO THE LAB. THE LINE IS SALINE LOCKED.
[2021-09-06 13:36] LABS: BASOPHILS % (AUTO) 0.3 % (0.0-2.0); EOSINOPHILS % (AUTO) 0.7 % (0.0-6.0); HEMATOCRIT 43 % (39-51); HEMOGLOBIN 14.4 g/dL (13.5-17.5); LYMPHOCYTES # (AUTO) 0.1 K/uL (0.8-4.8); LYMPHOCYTES % (AUTO) 0.5 % (20.0-44.0); MEAN CORPUSCULAR HGB CONC 33 g/dl (31.0-36.0); MEAN CORPUSCULAR VOLUME 93 fL (80-96); MONOCYTES # (AUTO) 0.4 K/uL (0.1-1.30); MONOCYTES % (AUTO) 3.8 % (2.0-12.0); NEUTROPHILS # (AUTO) 10.3 K/uL (1.8-8.9); NEUTROPHILS % (AUTO) 94.7 % (43.0-81.0); PLATELET COUNT (AUTO) 196 K/uL (150-450); RED BLOOD CELL COUNT(AUTO) 4.65 MIL/uL (4.5-6.0); WHITE BLOOD COUNT (AUTO) 10.9 K/uL (4.3-11.0)
[2021-09-06 13:46] LABS: CALCIUM, SERUM 8.6 mg/dL (8.5-10.1); CARBON DIOXIDE 21 mmol/L (21-32); CHLORIDE 102 mmol/L (98-107); CREATININE 1.3 mg/dL (0.6-1.3); GLUCOSE 214 mg/dL (74-106); POTASSIUM 4.2 mmol/L (3.5-5.1); SODIUM SERUM 134 mmol/L (136-145); UREA NITROGEN, BLOOD 22 mg/dL (7-18)
[2021-09-06] MEDS ORDERED: OXYB5TAB16 PO (13:51)
[2021-09-06 13:52] LABS: ALANINE AMINOTRANSFERASE 20 U/L (12-78); ALBUMIN 3.3 g/dL (3.4-5.0); ALKALINE PHOSPHATASE 61 U/L (46-116); ASPARTATE AMINOTRANSFERASE 13 U/L (15-37); BILIRUBIN,DIRECT 0.1 mg/dL (0.0-0.2); BILIRUBIN,TOTAL 0.5 mg/dL (0.2-1.0); TOTAL PROTEIN, SERUM 6.8 g/dL (6.4-8.2)
[2021-09-06] MEDS ORDERED: IV NS 0.9% 1,000 ML BAG IV ONE (14:00)
[2021-09-06] MEDS ORDERED: CEFTRIAXONE 1GM BAG (ER ONLY) 50 ML IV ONE (14:00)
--- NOTE | 2021-09-06 14:45 | NUR ---
PATIENT TGAKEN TO CT VIA [facility].
--- NOTE | 2021-09-06 15:17 | NUR ---
URINE SAMPLE SENT TO LAB.
[2021-09-06 15:40] LABS: BILIRUBIN,URINE NEGATIVE (NEGATIVE); COLOR,URINE YELLOW (YELLOW); LEUKOCYTE ESTERASE ,URINE TRACE (NEGATIVE); NITRITE, URINE POSITIVE (NEGATIVE); PH,URINE 5.5 (5.0-8.0); PROTEIN,URINE 100 mg/dl (NEGATIVE); UGLUCOSE >=1000 mg/dL (NEGATIVE)
[2021-09-06 15:51] LABS: RBC,URINE TOO NUMEROUS TO COUN /HPF (0-2)
[2021-09-06 15:52] LABS: BACTERIA,URINE None seen /HPF (None Seen); SQUAMOUS EPITHELIAL CELL,UR 0-2 /HPF (None Seen)
--- NOTE | 2021-09-06 16:05 | NUR ---
[facility] CALLED SECURITY GUARD PAGED.
[2021-09-06] MEDS ORDERED: DEXTROSE 50%-WATER 50 ML DISP.SYRIN IV PRN (17:00)
[2021-09-06] MEDS ORDERED: ACETAMINOPHEN 325 MG TABLET PO PRN (17:00)
[2021-09-06] MEDS ORDERED: MORPHINE SULFATE INJ 2 MG/ML DISP.SYRIN IV PRN (17:00)
[2021-09-06] MEDS ORDERED: ONDANSETRON HCL/PF 4 MG/2 ML VIAL IVP PRN (17:00)
[2021-09-06] MEDS ORDERED: PIPERACILLIN /TAZOBACTAM 3.375 G in IV D5W 50 ML IV SCH (18:00)
--- NOTE | 2021-09-06 18:43 | NUR ---
GOING TO 326.2
--- NOTE | 2021-09-06 19:30 | NUR ---
REPORT GIVEN TO CLAU RN 326-2 FOR MALVIN
[2021-09-06 20:00] VITALS: BP 128/68
[2021-09-06] MEDS ORDERED: VANCOMYCIN HCL 0.75 GM in IV D5W 250 ML IV SCH (20:00)
[2021-09-06] MEDS: IV NS 0.9% 1,000 ML IV PRN (20:30)
--- NOTE | 2021-09-06 20:30 | NUR ---
MS RN ADMITTING NOTES: RECEIVED PATIENT AWAKE IN BED VIA GURNEY FROM ER, TRANSFER TO ROOM 326-2, PATIENT IS A/OX4 ABLE TO EXPRESS NEEDS, ON ROOM AIR SATURATING WELL, SKIN ASSESSMENT DONE AND DOCUMENTED, INVENTORY DONE SIGNED, WITH IV LINE AT RIGHT HAND #18 WITH ONGOING [id number] ML@50ML/HR INFUSING WELL, PATIENT WAS NOTED WITH FEVER AT 101.1 PRN ACETAMINOPHEN Q6H GIVEN, PLACED ICE PACK ON ARMPIT, PATIENT PLACED COMFORTABLY IN BED, REORIENTED TO ROOM, REMINDED TO USE CALL LIGHTS WHEN NEEDED ASSISTANCE, KEPT CLEAN AND DRY ALL NEEDS MET WILL CONTINUE TO MONITOR.
[2021-09-06] MEDS ORDERED: PIPERACILLIN /TAZOBACTAM 3.375 G VIAL IV ONE (21:26)
[2021-09-06] MEDS: PIPERACILLIN /TAZOBACTAM 3.375 G in IV D5W 50 ML IV SCH (21:29)
[2021-09-06] MEDS: BLOOD SUGAR DIAGNOSTIC 1 EACH STRIP IN SCH (22:00)
--- NOTE | 2021-09-06 22:05 | NUR ---
RN NOTES: PATIENT WAS NOTED WITH INCREASE TEMPERATURE AT 101.1, PRN ACETAMINOPHEN 650MG GIVEN , PLACE ICE PACK ON BILATERAL ARMPIT, ON IV HYDRATION OF 0.9NSS 1000M.L @ 50ML/HR , WILL CONTINUE TO MONITOR
[2021-09-06] MEDS: DOCUSATE SODIUM 100 MG CAPSULE PO SCH (22:56)
[2021-09-06] MEDS ORDERED: BISACODYL (5 MG) 5 MG TABLET.DR PO PRN (23:00)
[2021-09-06] MEDS: INSULIN REGULAR, HUMAN 100 UNIT/ML 3 ML VIAL SQ PRN (23:07)
--- NOTE | 2021-09-06 23:08 | NUR ---
ANTONIO NOTES: BLOOD SUGAR 155- 2 UNITS INSULIN GIVEN PER SLIDING SCALE Addendum: 09/06/21 at 2312 by CONNIE VALLES RN RN NOTES: PATIENT WAS OFFERED INSULIN 2 UNITS OF REGULAR INSULIN FOR BS-155 BUT NOW HE IS REFUSING HE SAID WANTED ONLY METFORMIN. INSULIN NOT GIVEN PER PATIENT REFUSAL
[2021-09-07] MEDS ORDERED: PIPERACILLIN /TAZOBACTAM 3.375 G VIAL IV ONE (02:47)
[2021-09-07] MEDS: PIPERACILLIN /TAZOBACTAM 3.375 G in IV D5W 50 ML IV SCH (02:48)
--- NOTE | 2021-09-07 06:37 | NUR ---
RN NOTES: BLOOD SUGAR-159- 2 UNITS INSULIN, PATIENT REFUSED INSULIN MEDICATIONS OFFERED SEVERAL TIMES EXPLAINED RISK AND BENEFITS BUT STILL REFUSING,
--- NOTE | 2021-09-07 06:38 | NUR ---
MS RN CLOSING NOTES: PATIENT AWAKE IN BED COMFORTABLY, NO COMPLAIN OF PAIN AND DISCOMFORT ON ROM AIR SATURATING WELL, NO COMPLAIN OF PAIN AND DISCOMFORT AT THIS TIME, WITH IV LINE AT RFA#18 WITH ONGOING NSS@50ML/HR INFUSING WELL, PATIENT KEPT CLEAN AND DRY ALL NEEDS MET ENDORSE TO INCOMING SHIFT.
[2021-09-07] MEDS: BLOOD SUGAR DIAGNOSTIC 1 EACH STRIP IN SCH ×4 (06:55→21:26)
[2021-09-07 07:12] LABS: THYROID STIMULATING HORMONE 0.455 uIU/mL (0.358-3.74)
[2021-09-07 07:14] LABS: BASOPHILS % (AUTO) 0.1 % (0.0-2.0); EOSINOPHILS % (AUTO) 0.8 % (0.0-6.0); HEMATOCRIT 43 % (39-51); HEMOGLOBIN 14.4 g/dL (13.5-17.5); LYMPHOCYTES # (AUTO) 0.1 K/uL (0.8-4.8); LYMPHOCYTES % (AUTO) 1.3 % (20.0-44.0); MEAN CORPUSCULAR HGB CONC 33 g/dl (31.0-36.0); MEAN CORPUSCULAR VOLUME 93 fL (80-96); MONOCYTES # (AUTO) 0.4 K/uL (0.1-1.30); MONOCYTES % (AUTO) 3.7 % (2.0-12.0); NEUTROPHILS # (AUTO) 10.5 K/uL (1.8-8.9); NEUTROPHILS % (AUTO) 94.1 % (43.0-81.0); PLATELET COUNT (AUTO) 165 K/uL (150-450); RED BLOOD CELL COUNT(AUTO) 4.64 MIL/uL (4.5-6.0); WHITE BLOOD COUNT (AUTO) 11.1 K/uL (4.3-11.0)
--- NOTE | 2021-09-07 07:30 | NUR ---
MS RN OPENING NOTES: PATIENT AWAKE IN BED COMFORTABLY. A/O X4, ABLE TO MAKE NEEDS KNOWN. ON RA, TOLERATING WELL. NO S/S OF SOB OR ACUTE DISTRESS AT THE MOMENT. IV ACCESS @ RFA#18 INFUSING NS@50ML/HR, IV ACCESS R WRIST SL, PATENT. SAFETY MEASURE IN PLACE, HOB ELEVATED, LOCKED AT LOWEST POSITION, SIDE RAILS UP X2, TABLE AND CALL LIGHT WITHIN REACH, WILL CONT TO MONITOR.
[2021-09-07 08:00] VITALS: BP 132/63
[2021-09-07 08:00] LABS: BILIRUBIN,TOTAL 0.5 mg/dL (0.2-1.0); CALCIUM, SERUM 8.1 mg/dL (8.5-10.1); MAGNESIUM 2.5 mg/dL (1.8-2.4); PHOSPHORUS 2.6 mg/dL (2.5-4.9); TOTAL PROTEIN, SERUM 6.3 g/dL (6.4-8.2)
[2021-09-07 08:13] LABS: POTASSIUM 3.6 mmol/L (3.5-5.1)
[2021-09-07] MEDS ORDERED: IV NS 0.9% 1,000 ML IV ONE (08:30)
[2021-09-07] MEDS ORDERED: Medication Not On Formulary EA (Ertugliflozin Pidolate (Steglatro) 15 MG) PO SCH (09:00)
[2021-09-07] MEDS ORDERED: PANTOPRAZOLE 40 MG VIAL IV SCH (09:00)
[2021-09-07 09:16] LABS: ALBUMIN 2.8 g/dL (3.4-5.0)
[2021-09-07] MEDS: TAMSULOSIN 0.4 MG CAP.SR.24H PO SCH (09:32)
[2021-09-07] MEDS: METFORMIN 500 MG TABLET PO SCH ×2 (09:32→17:34)
[2021-09-07] MEDS: CLOPIDOGREL BISULFATE 75 MG TABLET PO SCH (09:32)
[2021-09-07] MEDS: DOCUSATE SODIUM 100 MG CAPSULE PO SCH ×2 (09:33→17:34)
[2021-09-07] MEDS: ISOSORBIDE MONONITRATE (30MG) 30 MG TAB.SR.24H PO SCH (09:33)
[2021-09-07] MEDS: OXYBUTYNIN CHLORIDE 5 MG TABLET PO SCH (09:33)
[2021-09-07] MEDS: POLYETHYLENE GLYCOL 3350 17 GM POWD.PACK PO SCH (09:46)
[2021-09-07] MEDS: ASPIRIN EC 81 MG TABLET.DR PO SCH (09:46)
[2021-09-07] MEDS ORDERED: PIPERACILLIN /TAZOBACTAM 3.375 G in IV D5W 100 ML IV SCH (10:00)
[2021-09-07 10:28] LABS: BAND % (MANUAL) 14 % (0.0-5.0); LYMPHOCYTES % (MANUAL) 3 % (16-48); METAMYELOCYTES % 1 % (0-0); MONOCYTES % (MANUAL) 5 % (0-11.0); MYELOCYTES % 1 % (0-0); NEUTROPHILS % (MANUAL) 76 (42-76)
[2021-09-07] MEDS: INSULIN REGULAR, HUMAN 100 UNIT/ML 3 ML VIAL SQ PRN ×2 (12:22→18:31)
--- NOTE | 2021-09-07 12:30 | NUR ---
MS RN NOTES: PT REFUSED REGULAR INSULIN COVERAGE FOR BS = 188/3 UNIT. RN EXPLAINED RATIONALE OF MED AND CONSEQUENCE OF MISSED MEDICATION, PT VERBALIZED UNDERSTANDING
[2021-09-07 16:01] VITALS: BP 138/80
[2021-09-07] MEDS: MEROPENEM 1 G in IV NS 0.9% 100 ML IV SCH (17:34)
[2021-09-07] MEDS: IV NS 0.9% 1,000 ML IV PRN (17:36)
[2021-09-07] MEDS: SEMAGLUTIDE 7 MG PO SCH (18:00)
--- NOTE | 2021-09-07 19:25 | NUR ---
RN NOTE RECEIVED PT AWAKE IN BED, WATCHING TV. A/OX4. DENIES ANY PAIN AT THIS TIME. RESPIRATIONS EVEN/UNLABORED. ON ROOM AIR. IV SITE: R-FA#18G INTACT/PATENT, INFUSING NS @75ML/HR. PT IN NO ACUTE DISTRESS. SAFETY MEASURES IN PLACE. WILL CONT TO MONITOR.
--- NOTE | 2021-09-07 19:59 | NUR ---
MS RN CLOSING NOTES: PATIENT AWAKE IN BED COMFORTABLY. A/O X4, ABLE TO MAKE NEEDS KNOWN. ON RA, TOLERATING WELL. NO S/S OF SOB OR ACUTE DISTRESS AT THE MOMENT. IV ACCESS @ RFA#18, SL PATENT, IV ACCESS R WRIST INFUSING NS@ 75 ML/HR. SAFETY MEASURES IN PLACE, HOB ELEVATED, LOCKED AT LOWEST POSITION, SIDE RAILS UP X2, TABLE AND CALL LIGHT WITHIN REACH, ENDORSED TO PM SHIFT.
[2021-09-07 20:00] VITALS: BP 140/80
[2021-09-07] MEDS: ATORVASTATIN 10 MG TABLET PO SCH (21:17)
--- NOTE | 2021-09-07 22:00 | NUR ---
RN NOTE VOIDED PER URINAL, 550ML
--- NOTE | 2021-09-08 01:00 | NUR ---
RN NOTE VOIDED/URINAL 300ML
[2021-09-08] MEDS: MEROPENEM 1 G in IV NS 0.9% 100 ML IV SCH ×3 (05:07→21:08)
--- NOTE | 2021-09-08 06:42 | NUR ---
RN NOTE PT AWAKE, A/OX4, ABLE TO MAKE NEEDS KNOWN. NO C/O PAIN AT THIS TIME. RESPIRATIONS EVEN/UNLABORED. AFEBRILE. AMBULATES TO BR WITH SLOW STEADY GAIT. VOIDED PER URINAL ANOTHER 325ML AT THIS TIME. TOTAL URINE OUTPUT 1125 THIS SHIFT. PT IN NO ACUTE DISTRESS. SAFETY MEASURES MAINTAINED.
[2021-09-08] MEDS: BLOOD SUGAR DIAGNOSTIC 1 EACH STRIP IN SCH ×4 (06:48→21:21)
[2021-09-08 07:28] LABS: BASOPHILS % (AUTO) 0.1 % (0.0-2.0); EOSINOPHILS % (AUTO) 1.8 % (0.0-6.0); HEMATOCRIT 37 % (39-51); HEMOGLOBIN 12.8 g/dL (13.5-17.5); LYMPHOCYTES # (AUTO) 0.5 K/uL (0.8-4.8); LYMPHOCYTES % (AUTO) 5.3 % (20.0-44.0); MEAN CORPUSCULAR HGB CONC 34 g/dl (31.0-36.0); MEAN CORPUSCULAR VOLUME 92 fL (80-96); MONOCYTES # (AUTO) 0.6 K/uL (0.1-1.30); MONOCYTES % (AUTO) 6.7 % (2.0-12.0); NEUTROPHILS # (AUTO) 8.2 K/uL (1.8-8.9); NEUTROPHILS % (AUTO) 86.1 % (43.0-81.0); PLATELET COUNT (AUTO) 166 K/uL (150-450); RED BLOOD CELL COUNT(AUTO) 4.04 MIL/uL (4.5-6.0); WHITE BLOOD COUNT (AUTO) 9.5 K/uL (4.3-11.0)
--- NOTE | 2021-09-08 07:45 | NUR ---
MS RN OPENING NOTES: PATIENT AWAKE IN BED COMFORTABLY. A/O X4, ABLE TO MAKE NEEDS KNOWN. ON RA, TOLERATING WELL. NO S/S OF SOB OR ACUTE DISTRESS AT THE MOMENT. IV ACCESS @ RFA#18 INFUSING NS@50ML/HR, IV ACCESS R WRIST SL, PATENT. URINAL AT BEDSIDE. SAFETY MEASURE IN PLACE, HOB ELEVATED, LOCKED AT LOWEST POSITION, SIDE RAILS UP X2, TABLE AND CALL LIGHT WITHIN REACH, WILL CONT TO MONITOR
[2021-09-08 08:00] VITALS: BP 131/74
[2021-09-08 09:06] LABS: CALCIUM, SERUM 8.3 mg/dL (8.5-10.1); CREATININE 0.8 mg/dL (0.6-1.3); PHOSPHORUS 2.5 mg/dL (2.5-4.9); POTASSIUM 3.7 mmol/L (3.5-5.1)
[2021-09-08] MEDS: PANTOPRAZOLE 40 MG TABLET.DR PO SCH (09:19)
[2021-09-08] MEDS: TAMSULOSIN 0.4 MG CAP.SR.24H PO SCH (09:19)
[2021-09-08] MEDS: OXYBUTYNIN CHLORIDE 5 MG TABLET PO SCH (09:20)
[2021-09-08] MEDS: METFORMIN 500 MG TABLET PO SCH ×2 (09:20→17:37)
[2021-09-08] MEDS: ISOSORBIDE MONONITRATE (30MG) 30 MG TAB.SR.24H PO SCH (09:20)
[2021-09-08] MEDS: ASPIRIN EC 81 MG TABLET.DR PO SCH (09:20)
[2021-09-08] MEDS: CLOPIDOGREL BISULFATE 75 MG TABLET PO SCH (09:20)
[2021-09-08] MEDS: POLYETHYLENE GLYCOL 3350 17 GM POWD.PACK PO SCH (09:27)
[2021-09-08] MEDS: DOCUSATE SODIUM 100 MG CAPSULE PO SCH ×2 (09:27→17:37)
[2021-09-08] MEDS: IV NS 0.9% 1,000 ML IV PRN (09:31)
[2021-09-08] MEDS: INSULIN REGULAR, HUMAN 100 UNIT/ML 3 ML VIAL SQ PRN ×3 (12:24→21:22)
--- NOTE | 2021-09-08 12:29 | NUR ---
MS RN NOTES: PT REFUSED REGULAR INSULIN COVERAGE FOR BS = 188/3 UNIT. RN EXPLAINED RATIONALE OF MED AND CONSEQUENCE OF MISSED MEDICATION, PT VERBALIZED UNDERSTANDING
[2021-09-08 15:32] VITALS: BP 123/71
[2021-09-08] MEDS: SEMAGLUTIDE 7 MG PO SCH (17:36)
--- NOTE | 2021-09-08 19:31 | NUR ---
MS RN CLOSING NOTES: PATIENT AWAKE IN BED COMFORTABLY. A/O X4, ABLE TO MAKE NEEDS KNOWN. ON RA, TOLERATING WELL. NO S/S OF SOB OR ACUTE DISTRESS AT THE MOMENT. IV ACCESS @ RFA#18 INFUSING NS@75ML/HR, IV ACCESS R WRIST SL, PATENT. URINAL AT BEDSIDE. SAFETY MEASURE IN PLACE, HOB ELEVATED, LOCKED AT LOWEST POSITION, SIDE RAILS UP X2, TABLE AND CALL LIGHT WITHIN REACH, WILL ENDORSE TO NEXT SHIFT
--- NOTE | 2021-09-08 19:35 | NUR ---
RN NOTE RECEIVED PT AWAKE IN BED, WATCHING TV. A/OX4, ABLE TO MAKE ALL NEEDS KNOWN. NO C/O PAIN AT THIS TIME. RESPIRATIONS EVEN/UNLABORED. ON ROOM AIR. IV SITE: R-FA#18G INTACT/PATENT, INFUSING NS @75ML/HR. PT IN NO ACUTE DISTRESS. SAFETY MEASURES IN PLACE, BED IN LOWEST LOCKED POSITION, S/R UPX2, CALL LIGHT WITHIN REACH. WILL CONT TO MONITOR.
[2021-09-08 20:00] VITALS: BP 134/73
[2021-09-08] MEDS: ATORVASTATIN 10 MG TABLET PO SCH (21:08)
[2021-09-09] MEDS: IV NS 0.9% 1,000 ML IV PRN (00:39)
[2021-09-09] MEDS: MEROPENEM 1 G in IV NS 0.9% 100 ML IV SCH ×2 (05:10→13:47)
[2021-09-09 06:10] LABS: BASOPHILS % (AUTO) 0.2 % (0.0-2.0); EOSINOPHILS % (AUTO) 2.6 % (0.0-6.0); HEMATOCRIT 36 % (39-51); HEMOGLOBIN 12.3 g/dL (13.5-17.5); LYMPHOCYTES # (AUTO) 1.5 K/uL (0.8-4.8); LYMPHOCYTES % (AUTO) 19.5 % (20.0-44.0); MEAN CORPUSCULAR HGB CONC 34 g/dl (31.0-36.0); MEAN CORPUSCULAR VOLUME 93 fL (80-96); MONOCYTES # (AUTO) 0.8 K/uL (0.1-1.30); MONOCYTES % (AUTO) 10.6 % (2.0-12.0); NEUTROPHILS % (AUTO) 67.1 % (43.0-81.0); PLATELET COUNT (AUTO) 166 K/uL (150-450); RED BLOOD CELL COUNT(AUTO) 3.87 MIL/uL (4.5-6.0); WHITE BLOOD COUNT (AUTO) 7.5 K/uL (4.3-11.0)
[2021-09-09] MEDS: BLOOD SUGAR DIAGNOSTIC 1 EACH STRIP IN SCH ×3 (06:14→17:29)
[2021-09-09 06:15] LABS: CALCIUM, SERUM 7.9 mg/dL (8.5-10.1); CREATININE 0.8 mg/dL (0.6-1.3); MAGNESIUM 1.8 mg/dL (1.8-2.4); PHOSPHORUS 2.9 mg/dL (2.5-4.9); POTASSIUM 3.4 mmol/L (3.5-5.1)
--- NOTE | 2021-09-09 06:51 | NUR ---
RN NOTE PT AWAKE, A/OX4, ABLE TO MAKE NEEDS KNOWN. NO C/O PAIN AT THIS TIME. RESPIRATIONS EVEN/UNLABORED. AFEBRILE. AMBULATES TO BR WITH SLOW STEADY GAIT. VOIDED PER URINAL X3, TOTAL 750ML URINE THIS SHIFT. PT IN NO ACUTE DISTRESS. SAFETY MEASURES MAINTAINED.
--- NOTE | 2021-09-09 07:15 | NUR ---
MS RN OPENING NOTE: RECEIVED PATIENT IN BED, AWAKE, A/O X 4. FARSI SPEAKING BUT ABLE TO UNDERSTAND TURKISH. ABLE TO MAKE SIMPLE NEEDS KNOWN. NO COMPLAINTS OF PAIN/DISCOMFORT AT THIS TIME. ON RA, BREATHING EVEN AND UNLABORED. IV ACCESS ON RIGHT FA #18G, PATENT AND FLUSHING WELL, NS RUNNING AT 75 ML/HR. NO S/S OF PHLEBITIS OR INFILTRATION ON IV SITE. PT. ABLE TO AMBULATE TO THE BATHROOM AND USES URINAL SOMETIMES. CONTINENT WITH CLOUDY TEA-COLORED URINE. MD AWARE. SKIN INTACT. SAFETY AND FALL PRECAUTIONS IN PLACE: BED LOCKED AND IN LOWEST POSITION, BED ALARM ON, CALL LIGHT AND BELONGINGS WITHIN EASY REACH. WILL CONTINUE TO MONITOR PT. FOR ANY CHANGES.
[2021-09-09 08:00] VITALS: BP 148/82
[2021-09-09] MEDS ORDERED: POTASSIUM CHLORIDE 20 MEQ TAB.PRT.SR PO SCH (09:30)
[2021-09-09] MEDS: POLYETHYLENE GLYCOL 3350 17 GM POWD.PACK PO SCH ×2 (10:00→10:02)
[2021-09-09] MEDS: TAMSULOSIN 0.4 MG CAP.SR.24H PO SCH (10:01)
[2021-09-09] MEDS: ASPIRIN EC 81 MG TABLET.DR PO SCH (10:01)
[2021-09-09] MEDS: CLOPIDOGREL BISULFATE 75 MG TABLET PO SCH (10:01)
[2021-09-09] MEDS: ISOSORBIDE MONONITRATE (30MG) 30 MG TAB.SR.24H PO SCH (10:01)
[2021-09-09] MEDS: DOCUSATE SODIUM 100 MG CAPSULE PO SCH ×2 (10:02→17:00)
[2021-09-09] MEDS: PANTOPRAZOLE 40 MG TABLET.DR PO SCH (10:02)
[2021-09-09] MEDS: METFORMIN 500 MG TABLET PO SCH ×2 (10:02→17:34)
[2021-09-09] MEDS: OXYBUTYNIN CHLORIDE 5 MG TABLET PO SCH (10:02)
--- NOTE | 2021-09-09 10:05 | NUR ---
MS RN NOTE: PT. REFUSED MIRALAX AND COLACE SCHEDULED AT 0900 AFTER OPENING. MEDICATION WASTED IN RX DESTROYER.
[2021-09-09 10:07] LABS: BAND % (MANUAL) 5 % (0.0-5.0); EOSINOPHILS % (MANUAL) 1 % (0-4); LYMPHOCYTES % (MANUAL) 15 % (16-48); MONOCYTES % (MANUAL) 8 % (0-11.0); NEUTROPHILS % (MANUAL) 70 (42-76)
[2021-09-09 10:08] LABS: MYELOCYTES % 1 % (0-0)
[2021-09-09] MEDS ORDERED: POLY17PO4 PO (11:23)
[2021-09-09] MEDS ORDERED: AMOX500T2 PO (11:23)
[2021-09-09] MEDS: INSULIN REGULAR, HUMAN 100 UNIT/ML 3 ML VIAL SQ PRN (11:53)
[2021-09-09] MEDS: SEMAGLUTIDE 7 MG PO SCH (17:34)
[2021-09-09 18:00] VITALS: BP 130/85
--- NOTE | 2021-09-09 19:00 | NUR ---
MS WASTE WATER WORKER NOTE: PT. DC'ED TO HOME. VS STABLE UPON DC. A0X4. ON RA, NO S/S OF RESPIRATORY DISTRESS. NO COMPLAINTS OF PAIN OR DISCOMFORT. ABLE TO AMBULATE INDEPENDENTLY WITH STABLE GAIT BUT IS USING WHEELCHAIR TO GO TO PRIVATE CAR. IV REMOVED, PRESSURE APPLIED WITH NO S/S OF BLEEDING. WRITTEN DC INSTRUCTIONS AND PT. BELONGING LIST GIVEN AND SIGNED BY PT. EDUCATION MATERIALS PROVIDED, NEW AND CONTINUED MEDICATIONS EXPLAINED TO PT AND FAMILY. PT. VERBALIZED UNDERSTANDING. PT. LEFT THE UNIT WITH SON MAN AT 1855 AND WHEELED OUT BY JORDEN PONCE.
== END 2021-09-09 19:30 | disposition home or self-care (01) | DRG 871 ==
LOC: ER 13:18 → TRANSITION 17:10 → MED 19:05
PROVIDERS: ADMIT Registered Nurse; ATTEND Nurse Practitioner Acute Care
DX: A41.9 Sepsis, unspecified organism (principal); J18.9 Pneumonia, unspecified organism; N39.0 Urinary tract infection, site not specified; E87.2 Acidosis; E87.1 Hypo-osmolality and hyponatremia; Z20.822 Contact with and (suspected) exposure to COVID-19; I10 Essential (primary) hypertension; Z98.890 Other specified postprocedural states; E11.9 Type 2 diabetes mellitus without complications; Z95.5 Presence of coronary angioplasty implant and graft; Z86.73 Personal history of transient ischemic attack (TIA), and cerebral infarction without residual deficits; Z79.82 Long term (current) use of aspirin; Z79.02 Long term (current) use of antithrombotics/antiplatelets; Z79.84 Long term (current) use of oral hypoglycemic drugs; Z79.899 Other long term (current) drug therapy; I25.10 Atherosclerotic heart disease of native coronary artery without angina pectoris; N40.0 Benign prostatic hyperplasia without lower urinary tract symptoms; E78.5 Hyperlipidemia, unspecified; K21.9 Gastro-esophageal reflux disease without esophagitis; R65.20 Severe sepsis without septic shock; B96.89 Other specified bacterial agents as the cause of diseases classified elsewhere; Y95 Nosocomial condition; K59.00 Constipation, unspecified; E88.09 Other disorders of plasma-protein metabolism, not elsewhere classified; N20.0 Calculus of kidney
CPT/HCPCS: 36415; 71045-TC; 74018; 80048-TC; 80053-TC; 80076-TC; 81001; 82962-TC; 83605-TC; 83735-TC; 84100-TC; 84443-TC; 84484-TC; 85025-TC; 85730-TC; 87040-TC; 87081-TC; 87086-TC; C9113; C9803; G0378; J0696; J1815; J2185; J2543; J3370; J7030; J7060

== ENCOUNTER 2021-10-28 11:47 | Inpatient (IN) | payer MEDICARE, OTHER ==
[~2021-10-28] VITALS: Ht 177.8 cm; Wt 75.7 kg
[~2021-10-28 11:47] MED LIST changes: +AMOX500T2 PO; +OXYB5TAB16 PO; +POLY17PO4 PO; -VANC750P9 IV
[2021-10-28 13:17] LABS: BASOPHILS % (AUTO) 0.2 % (0.0-2.0); HEMATOCRIT 41 % (39-51); HEMOGLOBIN 13.7 g/dL (13.5-17.5); LYMPHOCYTES # (AUTO) 0.6 K/uL (0.8-4.8); LYMPHOCYTES % (AUTO) 5.3 % (20.0-44.0); MEAN CORPUSCULAR HGB CONC 33 g/dl (31.0-36.0); MEAN CORPUSCULAR VOLUME 92 fL (80-96); MONOCYTES # (AUTO) 0.6 K/uL (0.1-1.30); MONOCYTES % (AUTO) 5.4 % (2.0-12.0); NEUTROPHILS # (AUTO) 10.1 K/uL (1.8-8.9); NEUTROPHILS % (AUTO) 89.1 % (43.0-81.0); PLATELET COUNT (AUTO) 202 K/uL (150-450); RED BLOOD CELL COUNT(AUTO) 4.45 MIL/uL (4.5-6.0); WHITE BLOOD COUNT (AUTO) 11.4 K/uL (4.3-11.0)
[2021-10-28] MEDS ORDERED: PIPERACILLIN /TAZOBACTAM 3.375 G in IV D5W 50 ML IV ONE (14:30)
[2021-10-28] MEDS ORDERED: ACETAMINOPHEN ES 500 MG TABLET PO ONE (14:30)
[2021-10-28] MEDS ORDERED: IV NS 0.9% 1,000 ML BAG IV ONE (14:30)
[2021-10-28] MEDS ORDERED: ACETAMINOPHEN ES 500 MG TABLET ONE (14:46)
[2021-10-28 14:52] LABS: ALANINE AMINOTRANSFERASE 34 U/L (12-78); ALBUMIN 3.6 g/dL (3.4-5.0); ALKALINE PHOSPHATASE 85 U/L (46-116); ASPARTATE AMINOTRANSFERASE 32 U/L (15-37); BILIRUBIN,DIRECT 0.2 mg/dL (0.0-0.2); BILIRUBIN,TOTAL 0.9 mg/dL (0.2-1.0); CARBON DIOXIDE 21 mmol/L (21-32); CHLORIDE 98 mmol/L (98-107); GLUCOSE 126 mg/dL (74-106); POTASSIUM 4.4 mmol/L (3.5-5.1); SODIUM SERUM 133 mmol/L (136-145); TOTAL PROTEIN, SERUM 8.3 g/dL (6.4-8.2); UREA NITROGEN, BLOOD 18 mg/dL (7-18)
[2021-10-28] MEDS ORDERED: DOCU100C58 PO (15:58)
[2021-10-28 16:14] LABS: BILIRUBIN,URINE NEGATIVE (NEGATIVE); COLOR,URINE YELLOW (YELLOW); LEUKOCYTE ESTERASE ,URINE TRACE (NEGATIVE); NITRITE, URINE POSITIVE (NEGATIVE); PH,URINE 5.5 (5.0-8.0); PROTEIN,URINE 100 mg/dl (NEGATIVE); UGLUCOSE >=1000 mg/dL (NEGATIVE); UROBILINOGEN,URINE 0.2 EU/dL (0.2)
[2021-10-28 16:31] LABS: BACTERIA,URINE Moderate /HPF (None Seen); RBC,URINE TOO NUMEROUS TO COUN /HPF (0-2)
[2021-10-28 21:30] VITALS: BP 134/68
[2021-10-28] MEDS ORDERED: CEFEPIME 1 GM in IV D5W 50 ML IV SCH (21:30)
[2021-10-28] MEDS ORDERED: MAG HYDROX/AL HYDROX/SIMETH 30 ML UDC PO PRN (21:30)
[2021-10-28] MEDS ORDERED: MORPHINE SULFATE INJ 2 MG/ML DISP.SYRIN IV PRN (21:30)
[2021-10-28] MEDS ORDERED: ONDANSETRON HCL/PF 4 MG/2 ML VIAL IVP PRN (21:30)
[2021-10-28] MEDS ORDERED: DEXTROSE 50%-WATER 50 ML DISP.SYRIN IV PRN (21:30)
[2021-10-28] MEDS ORDERED: MAGNESIUM HYDROXIDE 30 ML UDC PO PRN (21:30)
[2021-10-28] MEDS ORDERED: Z GUARD REMEDY 4 OZ OINT TP PRN (21:30)
[2021-10-28] MEDS ORDERED: VANCOMYCIN 1.25 GM in IV D5W 250 ML IV ONE (22:00)
[2021-10-28] MEDS: ENOXAPARIN SODIUM 40 MG/0.4 ML DISP.SYRIN SQ SCH (22:22)
[2021-10-28] MEDS: BLOOD SUGAR DIAGNOSTIC 1 EACH STRIP IN SCH (22:29)
[2021-10-28] MEDS ORDERED: PIPERACILLIN /TAZOBACTAM 3.375 G VIAL IV ONE (22:43)
[2021-10-28] MEDS ORDERED: VANCOMYCIN 1 GM VIAL ONE ×2 (22:44→22:45)
[2021-10-28] MEDS: INSULIN REGULAR, HUMAN 100 UNIT/ML 3 ML VIAL SQ PRN (23:25)
[2021-10-28 23:58] VITALS: BP 134/68
[2021-10-29] VITALS: BP 149/70
[2021-10-29] MEDS: ACETAMINOPHEN 325 MG TABLET PO PRN ×3 (00:13→20:14)
[2021-10-29] MEDS: PIPERACILLIN /TAZOBACTAM 3.375 G in IV D5W 50 ML IV SCH ×10 (01:06→23:50)
[2021-10-29] MEDS: TEMAZEPAM 7.5 MG CAPSULE PO PRN (01:23)
[2021-10-29 05:00] VITALS: BP 141/73
[2021-10-29 06:39] LABS: BASOPHILS % (AUTO) 0.2 % (0.0-2.0); HEMATOCRIT 41 % (39-51); HEMOGLOBIN 13.5 g/dL (13.5-17.5); LYMPHOCYTES # (AUTO) 0.3 K/uL (0.8-4.8); LYMPHOCYTES % (AUTO) 3.6 % (20.0-44.0); MEAN CORPUSCULAR HGB CONC 33 g/dl (31.0-36.0); MEAN CORPUSCULAR VOLUME 93 fL (80-96); MONOCYTES # (AUTO) 0.6 K/uL (0.1-1.30); MONOCYTES % (AUTO) 6.8 % (2.0-12.0); NEUTROPHILS % (AUTO) 89.4 % (43.0-81.0); PLATELET COUNT (AUTO) 199 K/uL (150-450); RED BLOOD CELL COUNT(AUTO) 4.38 MIL/uL (4.5-6.0)
[2021-10-29] MEDS: BLOOD SUGAR DIAGNOSTIC 1 EACH STRIP IN SCH ×4 (06:48→22:09)
[2021-10-29 07:15] LABS: CALCIUM, SERUM 8.6 mg/dL (8.5-10.1); CREATININE 1.1 mg/dL (0.6-1.3); MAGNESIUM 2.2 mg/dL (1.8-2.4); PHOSPHORUS 2.9 mg/dL (2.5-4.9)
[2021-10-29] MEDS: ASPIRIN EC 81 MG TABLET.DR PO SCH (09:00)
[2021-10-29] MEDS: CLOPIDOGREL BISULFATE 75 MG TABLET PO SCH (09:00)
[2021-10-29] MEDS: ATORVASTATIN 10 MG TABLET PO SCH (09:25)
[2021-10-29] MEDS: TAMSULOSIN 0.4 MG CAP.SR.24H PO SCH (09:25)
[2021-10-29] MEDS: ISOSORBIDE MONONITRATE (30MG) 30 MG TAB.SR.24H PO SCH (09:26)
[2021-10-29] MEDS: AMLODIPINE BESYLATE 10 MG TABLET PO SCH (09:26)
[2021-10-29] MEDS: DOCUSATE SODIUM 100 MG CAPSULE PO SCH ×2 (09:26→17:33)
[2021-10-29] MEDS: OXYBUTYNIN CHLORIDE 5 MG TABLET PO SCH (09:26)
[2021-10-29] MEDS ORDERED: VANCOMYCIN 1 GM in IV D5W 250ml IV SCH (11:00)
[2021-10-29] MEDS: ENOXAPARIN SODIUM 40 MG/0.4 ML DISP.SYRIN SQ SCH (20:17)
[2021-10-29 20:18] VITALS: BP 129/67
[2021-10-29] MEDS: INSULIN REGULAR, HUMAN 100 UNIT/ML 3 ML VIAL SQ PRN (22:10)
[2021-10-30 00:40] VITALS: BP 129/70
[2021-10-30 04:25] VITALS: BP 131/65
[2021-10-30] MEDS: PIPERACILLIN /TAZOBACTAM 3.375 G in IV D5W 50 ML IV SCH ×3 (05:17→18:07)
[2021-10-30 06:09] LABS: BASOPHILS % (AUTO) 0.3 % (0.0-2.0); EOSINOPHILS % (AUTO) 0.1 % (0.0-6.0); HEMATOCRIT 40 % (39-51); HEMOGLOBIN 13.3 g/dL (13.5-17.5); LYMPHOCYTES # (AUTO) 0.3 K/uL (0.8-4.8); LYMPHOCYTES % (AUTO) 5.9 % (20.0-44.0); MEAN CORPUSCULAR HGB CONC 34 g/dl (31.0-36.0); MEAN CORPUSCULAR VOLUME 92 fL (80-96); MONOCYTES # (AUTO) 0.6 K/uL (0.1-1.30); MONOCYTES % (AUTO) 10.3 % (2.0-12.0); NEUTROPHILS # (AUTO) 4.9 K/uL (1.8-8.9); NEUTROPHILS % (AUTO) 83.4 % (43.0-81.0); PLATELET COUNT (AUTO) 181 K/uL (150-450); RED BLOOD CELL COUNT(AUTO) 4.31 MIL/uL (4.5-6.0); WHITE BLOOD COUNT (AUTO) 5.9 K/uL (4.3-11.0)
[2021-10-30] MEDS: BLOOD SUGAR DIAGNOSTIC 1 EACH STRIP IN SCH ×4 (06:30→21:44)
[2021-10-30] MEDS: INSULIN REGULAR, HUMAN 100 UNIT/ML 3 ML VIAL SQ PRN (06:30)
[2021-10-30 06:35] LABS: CALCIUM, SERUM 8.4 mg/dL (8.5-10.1); CREATININE 0.9 mg/dL (0.6-1.3); POTASSIUM 3.5 mmol/L (3.5-5.1)
[2021-10-30 08:00] VITALS: BP 139/81
[2021-10-30] MEDS: ISOSORBIDE MONONITRATE (30MG) 30 MG TAB.SR.24H PO SCH (10:09)
[2021-10-30] MEDS: OXYBUTYNIN CHLORIDE 5 MG TABLET PO SCH (10:10)
[2021-10-30] MEDS: TAMSULOSIN 0.4 MG CAP.SR.24H PO SCH (10:10)
[2021-10-30] MEDS: ASPIRIN EC 81 MG TABLET.DR PO SCH (10:10)
[2021-10-30] MEDS: CLOPIDOGREL BISULFATE 75 MG TABLET PO SCH (10:10)
[2021-10-30] MEDS: DOCUSATE SODIUM 100 MG CAPSULE PO SCH ×2 (10:10→17:11)
[2021-10-30] MEDS: ATORVASTATIN 10 MG TABLET PO SCH (10:10)
[2021-10-30] MEDS: AMLODIPINE BESYLATE 10 MG TABLET PO SCH (10:10)
[2021-10-30 16:00] VITALS: BP 125/66
[2021-10-30 20:00] VITALS: BP 124/61
[2021-10-30] MEDS ORDERED: diphenhydrAMINE HCL 25 MG CAPSULE PO ONE (20:30)
[2021-10-30] MEDS: ENOXAPARIN SODIUM 40 MG/0.4 ML DISP.SYRIN SQ SCH (20:36)
[2021-10-30] MEDS: TEMAZEPAM 7.5 MG CAPSULE PO PRN (21:44)
[2021-10-31] VITALS: BP 136/65
[2021-10-31] MEDS: PIPERACILLIN /TAZOBACTAM 3.375 G in IV D5W 50 ML IV SCH ×4 (00:01→17:58)
[2021-10-31 04:00] VITALS: BP 128/62
[2021-10-31] MEDS: INSULIN REGULAR, HUMAN 100 UNIT/ML 3 ML VIAL SQ PRN ×2 (06:30→21:38)
[2021-10-31] MEDS: BLOOD SUGAR DIAGNOSTIC 1 EACH STRIP IN SCH ×4 (06:30→21:30)
[2021-10-31 06:59] LABS: BASOPHILS % (AUTO) 0.3 % (0.0-2.0); EOSINOPHILS % (AUTO) 0.5 % (0.0-6.0); HEMATOCRIT 38 % (39-51); HEMOGLOBIN 12.7 g/dL (13.5-17.5); LYMPHOCYTES # (AUTO) 0.8 K/uL (0.8-4.8); LYMPHOCYTES % (AUTO) 14.4 % (20.0-44.0); MEAN CORPUSCULAR HGB CONC 34 g/dl (31.0-36.0); MEAN CORPUSCULAR VOLUME 91 fL (80-96); MONOCYTES # (AUTO) 0.7 K/uL (0.1-1.30); MONOCYTES % (AUTO) 13.8 % (2.0-12.0); NEUTROPHILS # (AUTO) 3.8 K/uL (1.8-8.9); PLATELET COUNT (AUTO) 184 K/uL (150-450); RED BLOOD CELL COUNT(AUTO) 4.15 MIL/uL (4.5-6.0); WHITE BLOOD COUNT (AUTO) 5.4 K/uL (4.3-11.0)
[2021-10-31 07:25] LABS: CALCIUM, SERUM 8.3 mg/dL (8.5-10.1); CREATININE 0.9 mg/dL (0.6-1.3); POTASSIUM 3.2 mmol/L (3.5-5.1)
[2021-10-31 08:00] VITALS: BP 121/70
[2021-10-31] MEDS: TAMSULOSIN 0.4 MG CAP.SR.24H PO SCH (09:00)
[2021-10-31] MEDS: OXYBUTYNIN CHLORIDE 5 MG TABLET PO SCH (10:03)
[2021-10-31] MEDS: ISOSORBIDE MONONITRATE (30MG) 30 MG TAB.SR.24H PO SCH (10:05)
[2021-10-31] MEDS: DOCUSATE SODIUM 100 MG CAPSULE PO SCH ×2 (10:05→17:57)
[2021-10-31] MEDS: ASPIRIN EC 81 MG TABLET.DR PO SCH (10:05)
[2021-10-31] MEDS: CLOPIDOGREL BISULFATE 75 MG TABLET PO SCH (10:06)
[2021-10-31] MEDS: AMLODIPINE BESYLATE 10 MG TABLET PO SCH (10:07)
[2021-10-31] MEDS: ATORVASTATIN 10 MG TABLET PO SCH (10:08)
[2021-10-31] MEDS: POTASSIUM CHLORIDE 20 MEQ TAB.PRT.SR PO SCH ×2 (11:37→13:48)
[2021-10-31 12:00] VITALS: BP 129/62
[2021-10-31 16:00] VITALS: BP 120/61
[2021-10-31] MEDS: METFORMIN 500 MG TABLET PO SCH (17:58)
[2021-10-31 20:00] VITALS: BP 125/63
[2021-10-31] MEDS: ENOXAPARIN SODIUM 40 MG/0.4 ML DISP.SYRIN SQ SCH (21:30)
[2021-10-31] MEDS ORDERED: diphenhydrAMINE HCL ELIX 25 MG/10 ML UDC PO PRN (22:00)
[2021-11-01] VITALS: BP 126/64
[2021-11-01] MEDS: PIPERACILLIN /TAZOBACTAM 3.375 G in IV D5W 50 ML IV SCH ×4 (00:28→17:53)
[2021-11-01] MEDS: TEMAZEPAM 7.5 MG CAPSULE PO PRN ×2 (01:48→21:20)
[2021-11-01 05:44] VITALS: BP 131/67
[2021-11-01 06:18] LABS: BASOPHILS % (AUTO) 0.3 % (0.0-2.0); EOSINOPHILS % (AUTO) 1.2 % (0.0-6.0); HEMATOCRIT 37 % (39-51); HEMOGLOBIN 12.5 g/dL (13.5-17.5); LYMPHOCYTES # (AUTO) 1.5 K/uL (0.8-4.8); LYMPHOCYTES % (AUTO) 22.4 % (20.0-44.0); MEAN CORPUSCULAR HGB CONC 34 g/dl (31.0-36.0); MEAN CORPUSCULAR VOLUME 90 fL (80-96); MONOCYTES # (AUTO) 1.5 K/uL (0.1-1.30); MONOCYTES % (AUTO) 22.5 % (2.0-12.0); NEUTROPHILS # (AUTO) 3.5 K/uL (1.8-8.9); NEUTROPHILS % (AUTO) 53.6 % (43.0-81.0); PLATELET COUNT (AUTO) 198 K/uL (150-450); RED BLOOD CELL COUNT(AUTO) 4.05 MIL/uL (4.5-6.0); WHITE BLOOD COUNT (AUTO) 6.5 K/uL (4.3-11.0)
[2021-11-01 06:35] LABS: CALCIUM, SERUM 8.3 mg/dL (8.5-10.1); CREATININE 0.7 mg/dL (0.6-1.3); POTASSIUM 3.7 mmol/L (3.5-5.1)
[2021-11-01 08:00] VITALS: BP 123/70
[2021-11-01] MEDS: BLOOD SUGAR DIAGNOSTIC 1 EACH STRIP IN SCH ×4 (08:17→21:20)
[2021-11-01 08:33] LABS: LYMPHOCYTES % (MANUAL) 37 % (16-48); MONOCYTES % (MANUAL) 12 % (0-11.0); NEUTROPHILS % (MANUAL) 51 (42-76)
[2021-11-01] MEDS: ISOSORBIDE MONONITRATE (30MG) 30 MG TAB.SR.24H PO SCH (09:21)
[2021-11-01] MEDS: TAMSULOSIN 0.4 MG CAP.SR.24H PO SCH (09:21)
[2021-11-01] MEDS: OXYBUTYNIN CHLORIDE 5 MG TABLET PO SCH (09:21)
[2021-11-01] MEDS: METFORMIN 500 MG TABLET PO SCH ×2 (09:21→16:39)
[2021-11-01] MEDS: ASPIRIN EC 81 MG TABLET.DR PO SCH (09:21)
[2021-11-01] MEDS: CLOPIDOGREL BISULFATE 75 MG TABLET PO SCH (09:21)
[2021-11-01] MEDS: DOCUSATE SODIUM 100 MG CAPSULE PO SCH ×2 (09:21→16:39)
[2021-11-01] MEDS: ATORVASTATIN 10 MG TABLET PO SCH (09:21)
[2021-11-01] MEDS: AMLODIPINE BESYLATE 10 MG TABLET PO SCH (09:22)
[2021-11-01 12:00] VITALS: BP 137/68
[2021-11-01 17:00] VITALS: BP 129/68
[2021-11-01 20:00] VITALS: BP 135/54
[2021-11-01] MEDS: ENOXAPARIN SODIUM 40 MG/0.4 ML DISP.SYRIN SQ SCH (21:13)
[2021-11-01] MEDS: INSULIN REGULAR, HUMAN 100 UNIT/ML 3 ML VIAL SQ PRN (21:21)
[2021-11-02] VITALS: BP 117/71
[2021-11-02 04:00] VITALS: BP 130/80
[2021-11-02] MEDS: PIPERACILLIN /TAZOBACTAM 3.375 G in IV D5W 50 ML IV SCH ×3 (05:55)
[2021-11-02] MEDS: BLOOD SUGAR DIAGNOSTIC 1 EACH STRIP IN SCH ×2 (06:31→12:10)
[2021-11-02] MEDS: INSULIN REGULAR, HUMAN 100 UNIT/ML 3 ML VIAL SQ PRN ×2 (06:31→12:11)
[2021-11-02 08:00] VITALS: BP 133/73
[2021-11-02] MEDS: CLOPIDOGREL BISULFATE 75 MG TABLET PO SCH (09:20)
[2021-11-02] MEDS: ISOSORBIDE MONONITRATE (30MG) 30 MG TAB.SR.24H PO SCH (09:21)
[2021-11-02] MEDS: ATORVASTATIN 10 MG TABLET PO SCH (09:22)
[2021-11-02] MEDS: DOCUSATE SODIUM 100 MG CAPSULE PO SCH (09:22)
[2021-11-02] MEDS: ASPIRIN EC 81 MG TABLET.DR PO SCH (09:22)
[2021-11-02] MEDS: TAMSULOSIN 0.4 MG CAP.SR.24H PO SCH (09:23)
[2021-11-02] MEDS: OXYBUTYNIN CHLORIDE 5 MG TABLET PO SCH (09:23)
[2021-11-02] MEDS: METFORMIN 500 MG TABLET PO SCH (09:23)
[2021-11-02] MEDS: AMLODIPINE BESYLATE 10 MG TABLET PO SCH (09:23)
[2021-11-02 12:00] VITALS: BP 132/66
[2021-11-02] MEDS ORDERED: LEVOFLOXACIN (250MG) 250 MG TABLET PO SCH (12:30)
[2021-11-02] MEDS ORDERED: ENOX40DI SQ (13:03)
[2021-11-02] MEDS ORDERED: METF-440 PO (13:03)
[2021-11-02] MEDS ORDERED: LEVO250T59 PO (13:03)
[2021-11-02 16:00] VITALS: BP 165/68
== END 2021-11-02 18:03 | DRG 872 ==
LOC: ER 11:48 → MED 20:51 → TELE 10-29
PROVIDERS: ADMIT Nurse Practitioner Family; ATTEND Nurse Practitioner Acute Care
DX: A41.9 Sepsis, unspecified organism (principal); E87.1 Hypo-osmolality and hyponatremia; N39.0 Urinary tract infection, site not specified; Z86.73 Personal history of transient ischemic attack (TIA), and cerebral infarction without residual deficits; E11.9 Type 2 diabetes mellitus without complications; Z20.822 Contact with and (suspected) exposure to COVID-19; Z66 Do not resuscitate; Z87.442 Personal history of urinary calculi; Z95.5 Presence of coronary angioplasty implant and graft; I25.10 Atherosclerotic heart disease of native coronary artery without angina pectoris; I10 Essential (primary) hypertension; E78.5 Hyperlipidemia, unspecified; Z98.890 Other specified postprocedural states; K21.9 Gastro-esophageal reflux disease without esophagitis; Z79.82 Long term (current) use of aspirin; Z79.02 Long term (current) use of antithrombotics/antiplatelets; Z79.84 Long term (current) use of oral hypoglycemic drugs; Z79.899 Other long term (current) drug therapy; I70.0 Atherosclerosis of aorta; B96.1 Klebsiella pneumoniae [K. pneumoniae] as the cause of diseases classified elsewhere; N40.0 Benign prostatic hyperplasia without lower urinary tract symptoms; Z87.440 Personal history of urinary (tract) infections; N20.0 Calculus of kidney; K40.90 Unilateral inguinal hernia, without obstruction or gangrene, not specified as recurrent
CPT/HCPCS: 36415; 71045-TC; 80048-TC; 80061-TC; 80076-TC; 80202-TC; 81001; 82962-TC; 83605-TC; 83735-TC; 83880; 84100-TC; 84484-TC; 85025-TC; 85730-TC; 87040-TC; 87081-TC; 87086-TC; 87186-TC; 97116-TC; 97530-TC; C9803; G0378; J1650; J1815; J2543; J3370; J7030; J7050; J7060; Q0163

== ENCOUNTER 2023-08-13 16:12 | Inpatient (IN) | payer MEDICARE, OTHER ==
[~2023-08-13] VITALS: Ht 170.2 cm; Wt 83.5 kg
[~2023-08-13 16:12] MED LIST changes: -AMOX500T2 PO; +DOCU100C58 PO; +ENOX40DI SQ; +LEVO250T59 PO; -LOSA25TA27 PO; +METF-440 PO; -POLY17PO4 PO
[2023-08-13] MEDS: VANCOMYCIN 1 GM in IV D5W 250 ML IV ONE (16:30)
[2023-08-13 16:51] LABS: BASOPHILS % (AUTO) 0.1 % (0.0-2.0); EOSINOPHILS % (AUTO) 0.2 % (0.0-6.0); HEMATOCRIT 39 % (39-51); HEMOGLOBIN 13.8 g/dL (13.5-17.5); LYMPHOCYTES # (AUTO) 0.8 K/uL (0.8-4.8); LYMPHOCYTES % (AUTO) 6.9 % (20.0-44.0); MEAN CORPUSCULAR HEMOGLOBIN 32 PG (26.0-33.0); MEAN CORPUSCULAR HGB CONC 35 g/dl (31.0-36.0); MEAN CORPUSCULAR VOLUME 92 fL (80-96); MONOCYTES # (AUTO) 0.6 K/uL (0.1-1.30); MONOCYTES % (AUTO) 5.6 % (2.0-12.0); NEUTROPHILS # (AUTO) 9.9 K/uL (1.8-8.9); NEUTROPHILS % (AUTO) 87.2 % (43.0-81.0); PLATELET COUNT (AUTO) 236 K/uL (150-450); RED BLOOD CELL COUNT(AUTO) 4.27 MIL/uL (4.5-6.0); RED CELL DISTRIBUTION WIDTH 13.6 % (11.5-15.0); WHITE BLOOD COUNT (AUTO) 11.4 K/uL (4.3-11.0)
[2023-08-13 17:11] LABS: CARBON DIOXIDE 22 mmol/L (21-32); CHLORIDE 104 mmol/L (98-107); CREATININE 0.9 mg/dL (0.6-1.3); GLUCOSE 264 mg/dL (74-106); POTASSIUM 3.6 mmol/L (3.5-5.1); SODIUM SERUM 138 mmol/L (136-145); UREA NITROGEN, BLOOD 14 mg/dL (7-18)
[2023-08-13 17:19] LABS: LACTIC ACID 1.3 mmol/L (0.4-2.0)
[2023-08-13 17:23] LABS: NT-PRO BNP 49 pg/mL (0-125)
[2023-08-13] MEDS: CEFEPIME 1 GM in IV D5W 50 ML IV ONE (17:26)
[2023-08-13] MEDS: IV NS 0.9% 1,000 ML BAG IV ONE (17:26)
[2023-08-13 17:59] LABS: ALBUMIN 3.3 g/dL (3.4-5.0); BILIRUBIN,DIRECT 0.2 mg/dL (0.0-0.2); BILIRUBIN,TOTAL 0.8 mg/dL (0.2-1.0)
[2023-08-13 18:00] LABS: TOTAL PROTEIN, SERUM 7.5 g/dL (6.4-8.2)
[2023-08-13 18:35] LABS: APPEARANCE,URINE SLIGHTLY CLOUDY (CLEAR); BILIRUBIN,URINE NEGATIVE (NEGATIVE); BLOOD, URINE 2+ Ery/uL (NEGATIVE); COLOR,URINE YELLOW (YELLOW); KETONES,URINE 1+ mg/dL (NEGATIVE); LEUKOCYTE ESTERASE ,URINE NEGATIVE (NEGATIVE); NITRITE, URINE POSITIVE (NEGATIVE); PROTEIN,URINE 1+ mg/dl (NEGATIVE); UGLUCOSE 3+ mg/dL (NEGATIVE); UROBILINOGEN,URINE 0.2 EU/dL (0.2)
[2023-08-13 18:53] LABS: ADD URINE CULTURE YES; BACTERIA,URINE 3+ /HPF (None Seen)
[2023-08-13 18:55] LABS: FINE GRANULAR CASTS,URINE Few /LPF (None Seen); SQUAMOUS EPITHELIAL CELL,UR None Seen /HPF (None Seen); TRICHOMONAS,URINE None Seen /HPF (None Seen); YEAST,URINE None Seen /HPF (None Seen)
[2023-08-13 18:56] LABS: SPERM,URINE Few /HPF (None Seen)
[2023-08-13] MEDS ORDERED: DAPA5TAB PO (19:17)
[2023-08-13] MEDS ORDERED: LOSA25TA27 PO (19:17)
[2023-08-13] MEDS ORDERED: DIPH50CA38 PO (19:17)
[2023-08-13] MEDS ORDERED: GEMTESA PO (19:17)
[2023-08-13] MEDS ORDERED: CYAN10006 IM (19:17)
[2023-08-13] MEDS ORDERED: SEMA14TA PO (19:17)
[2023-08-13 23:16] VITALS: BP 122/88; TEMP 99.5; O2SAT 98
[2023-08-13] MEDS ORDERED: MAGNESIUM HYDROXIDE 30 ML UDC PO PRN (23:30)
[2023-08-13] MEDS ORDERED: CYANOCOBALAMIN 1,000 MCG/ML VIAL IM SCH (23:30)
[2023-08-13] MEDS ORDERED: MAG HYDROX/AL HYDROX/SIMETH 30 ML UDC PO PRN (23:30)
[2023-08-13] MEDS ORDERED: ONDANSETRON HCL/PF 4 MG/2 ML VIAL IVP PRN (23:30)
[2023-08-13] MEDS ORDERED: Z GUARD REMEDY 4 OZ OINT TP PRN (23:30)
[2023-08-13] MEDS ORDERED: ZOLPIDEM TARTRATE 5 MG TABLET PO PRN (23:30)
[2023-08-14] MEDS: ENOXAPARIN SODIUM 40 MG/0.4 ML DISP.SYRIN SQ SCH (00:19)
[2023-08-14 06:48] LABS: BASOPHILS % (AUTO) 0.2 % (0.0-2.0); EOSINOPHILS # (AUTO) 0.1 K/uL (0.0-0.7); EOSINOPHILS % (AUTO) 0.7 % (0.0-6.0); HEMATOCRIT 38 % (39-51); LYMPHOCYTES # (AUTO) 0.6 K/uL (0.8-4.8); LYMPHOCYTES % (AUTO) 8.1 % (20.0-44.0); MEAN CORPUSCULAR HEMOGLOBIN 32 PG (26.0-33.0); MEAN CORPUSCULAR HGB CONC 34 g/dl (31.0-36.0); MEAN CORPUSCULAR VOLUME 92 fL (80-96); MONOCYTES # (AUTO) 0.4 K/uL (0.1-1.30); MONOCYTES % (AUTO) 5.2 % (2.0-12.0); NEUTROPHILS # (AUTO) 6.9 K/uL (1.8-8.9); NEUTROPHILS % (AUTO) 85.8 % (43.0-81.0); PLATELET COUNT (AUTO) 226 K/uL (150-450); RED CELL DISTRIBUTION WIDTH 13.5 % (11.5-15.0)
[2023-08-14] MEDS ORDERED: CEFEPIME 2 GM in IV D5W 100 ML IV SCH (07:00)
[2023-08-14 07:09] LABS: ALBUMIN 2.7 g/dL (3.4-5.0); BILIRUBIN,DIRECT 0.1 mg/dL (0.0-0.2); BILIRUBIN,TOTAL 0.4 mg/dL (0.2-1.0); CALCIUM, SERUM 8.9 mg/dL (8.5-10.1); CREATININE 0.7 mg/dL (0.6-1.3); MAGNESIUM 2.3 mg/dL (1.8-2.4); PHOSPHORUS 1.9 mg/dL (2.5-4.9); POTASSIUM 3.4 mmol/L (3.5-5.1); TOTAL PROTEIN, SERUM 6.8 g/dL (6.4-8.2)
[2023-08-14 07:29] LABS: THYROID STIMULATING HORMONE 0.67 uIU/mL (0.358-3.74)
[2023-08-14 07:30] VITALS: BP 142/73; TEMP 99.5; O2SAT 96
[2023-08-14] MEDS: PANTOPRAZOLE 40 MG TABLET.DR PO SCH (08:25)
[2023-08-14] MEDS: METFORMIN 500 MG TABLET PO SCH (08:27)
[2023-08-14] MEDS: ATORVASTATIN 10 MG TABLET PO SCH (08:27)
[2023-08-14] MEDS: LOSARTAN POTASSIUM 25 MG TABLET PO SCH (08:27)
[2023-08-14] MEDS: ASPIRIN EC 81 MG TABLET.DR PO SCH (08:28)
[2023-08-14] MEDS: DAPAGLIFLOZIN PROPANEDIOL 5 MG TABLET PO SCH (08:28)
[2023-08-14] MEDS: AMLODIPINE BESYLATE 10 MG TABLET PO SCH (08:28)
[2023-08-14] MEDS: CLOPIDOGREL BISULFATE 75 MG TABLET PO SCH (08:28)
[2023-08-14] MEDS: VANCOMYCIN HCL 1.25 GM in IV D5W 250 ML IV SCH (08:40)
[2023-08-14] MEDS ORDERED: Medication Not On Formulary EA (Semaglutide (Rybelsus) 14 MG) PO SCH (09:00)
[2023-08-14] MEDS ORDERED: Medication Not On Formulary EA ([Gemtesa] 75 MG) PO SCH (09:00)
[2023-08-14] MEDS ORDERED: DEXTROSE 50%-WATER 50 ML DISP.SYRIN IV PRN (10:00)
[2023-08-14] MEDS: POTASSIUM CHLORIDE 20 MEQ TAB.PRT.SR PO ONE (10:43)
[2023-08-14] MEDS: K PHOS NEUTRAL 250 MG TABLET PO ONE (10:43)
[2023-08-14] MEDS: BLOOD SUGAR DIAGNOSTIC 1 EACH STRIP IN SCH (11:33)
[2023-08-14] MEDS: CEFTRIAXONE 1 G in IV D5W 50 ML IV SCH (12:07)
[2023-08-14] MEDS: INSULIN REGULAR, HUMAN 100 UNIT/ML 3 ML VIAL SQ PRN (12:17)
[2023-08-14] MEDS: diphenhydrAMINE HCL 50 MG CAPSULE PO SCH (17:14)
[2023-08-14] MEDS: ACETAMINOPHEN 325 MG TABLET PO PRN (19:47)
[2023-08-14 20:00] VITALS: BP 135/75; TEMP 100; O2SAT 96
[2023-08-15 07:02] LABS: BASOPHILS % (AUTO) 0.3 % (0.0-2.0); EOSINOPHILS % (AUTO) 0.9 % (0.0-6.0); HEMATOCRIT 38 % (39-51); HEMOGLOBIN 13.2 g/dL (13.5-17.5); LYMPHOCYTES # (AUTO) 0.7 K/uL (0.8-4.8); LYMPHOCYTES % (AUTO) 15.2 % (20.0-44.0); MEAN CORPUSCULAR HEMOGLOBIN 32 PG (26.0-33.0); MEAN CORPUSCULAR HGB CONC 35 g/dl (31.0-36.0); MEAN CORPUSCULAR VOLUME 91 fL (80-96); MONOCYTES # (AUTO) 0.5 K/uL (0.1-1.30); MONOCYTES % (AUTO) 10.9 % (2.0-12.0); NEUTROPHILS # (AUTO) 3.4 K/uL (1.8-8.9); NEUTROPHILS % (AUTO) 72.7 % (43.0-81.0); PLATELET COUNT (AUTO) 238 K/uL (150-450); RED BLOOD CELL COUNT(AUTO) 4.11 MIL/uL (4.5-6.0); WHITE BLOOD COUNT (AUTO) 4.6 K/uL (4.3-11.0)
[2023-08-15 07:24] LABS: CALCIUM, SERUM 8.6 mg/dL (8.5-10.1); CREATININE 0.8 mg/dL (0.6-1.3); MAGNESIUM 2.3 mg/dL (1.8-2.4); PHOSPHORUS 2.9 mg/dL (2.5-4.9); POTASSIUM 3.7 mmol/L (3.5-5.1)
[2023-08-15 08:00] VITALS: BP 128/69; TEMP 98.4; O2SAT 97
[2023-08-15] MEDS: CEFEPIME 2 GM in IV D5W 100 ML IV SCH (10:29)
[2023-08-15 16:00] VITALS: BP 121/64; TEMP 98.2; O2SAT 96
[2023-08-15] MEDS: CLOPIDOGREL BISULFATE 75 MG TABLET PO SCH (17:14)
[2023-08-15 20:00] VITALS: BP 132/70; TEMP 98.3; O2SAT 96
[2023-08-16 07:00] LABS: CREATININE 0.7 mg/dL (0.6-1.3); POTASSIUM 3.8 mmol/L (3.5-5.1)
[2023-08-16 08:00] VITALS: BP 129/74; TEMP 98.4; O2SAT 95
[2023-08-16] MEDS ORDERED: CEFEPIME 1 GM VIAL IV SCH (09:00)
[2023-08-16] MEDS ORDERED: CEFEPIME 1 GM VIAL IM SCH (09:00)
[2023-08-16 09:06] VITALS: BP 129/74
[2023-08-16] MEDS ORDERED: CEPH-570 PO (12:08)
== END 2023-08-16 15:00 | disposition home or self-care (01) | DRG 872 ==
LOC: ER 16:17 → TELE 22:54 → MED 08-14 12:15
PROVIDERS: ADMIT Nurse Practitioner Family
DX: A41.9 Sepsis, unspecified organism (principal); E44.1 Mild protein-calorie malnutrition; N39.0 Urinary tract infection, site not specified; E86.0 Dehydration; N40.0 Benign prostatic hyperplasia without lower urinary tract symptoms; K21.9 Gastro-esophageal reflux disease without esophagitis; I25.10 Atherosclerotic heart disease of native coronary artery without angina pectoris; Z98.61 Coronary angioplasty status; E11.9 Type 2 diabetes mellitus without complications; E78.5 Hyperlipidemia, unspecified; Z88.8 Allergy status to other drugs, medicaments and biological substances; Z86.73 Personal history of transient ischemic attack (TIA), and cerebral infarction without residual deficits; Z79.02 Long term (current) use of antithrombotics/antiplatelets; Z79.84 Long term (current) use of oral hypoglycemic drugs; Z79.82 Long term (current) use of aspirin; Z79.899 Other long term (current) drug therapy; Z53.20 Procedure and treatment not carried out because of patient's decision for unspecified reasons; B96.89 Other specified bacterial agents as the cause of diseases classified elsewhere; E83.39 Other disorders of phosphorus metabolism; E87.6 Hypokalemia; E88.09 Other disorders of plasma-protein metabolism, not elsewhere classified; I10 Essential (primary) hypertension; Z87.440 Personal history of urinary (tract) infections
CPT/HCPCS: 36415; 71045-TC; 80048-TC; 80076-TC; 81001; 82962-TC; 83605-TC; 83735-TC; 83880; 84100-TC; 84443-TC; 84484-TC; 85025-TC; 87040-TC; 87086-TC; A4223; G0378; J0692; J0696; J1650; J1815; J3370; J7030; J7050; J7060; Q0163

== ENCOUNTER 2023-08-20 21:13 | Emergency (ER) | payer MEDICARE, OTHER ==
[~2023-08-20] VITALS: Ht 170.2 cm; Wt 81.6 kg
[~2023-08-20 21:13] MED LIST changes: +CEPH-570 PO; +CYAN10006 IM; +DAPA5TAB PO; +DIPH50CA38 PO; -DOCU100C58 PO; -ENOX40DI SQ; -ERTU15TA PO; +GEMTESA PO; -ISOS60TA72 PO; -LEVO250T59 PO; +LOSA25TA27 PO; -METF-440 PO; -OXYB5TAB16 PO; +SEMA14TA PO; -SEMA7TAB PO; -TAMS-12 PO
[2023-08-20 22:01] VITALS: BP 125/77; TEMP 98.8
[2023-08-20] MEDS ORDERED: CIPR-263 PO (22:01)
[2023-08-20 22:10] VITALS: O2SAT 96
== END 2023-08-20 22:11 | disposition home or self-care (01) ==
LOC: ER 21:45
DX: N39.0 Urinary tract infection, site not specified (principal); Z86.73 Personal history of transient ischemic attack (TIA), and cerebral infarction without residual deficits; I10 Essential (primary) hypertension; K21.9 Gastro-esophageal reflux disease without esophagitis; E11.9 Type 2 diabetes mellitus without complications; I25.10 Atherosclerotic heart disease of native coronary artery without angina pectoris; Z79.82 Long term (current) use of aspirin; Z79.84 Long term (current) use of oral hypoglycemic drugs; Z98.890 Other specified postprocedural states; Z79.899 Other long term (current) drug therapy; Z88.1 Allergy status to other antibiotic agents

== ENCOUNTER 2024-08-21 16:38 | Inpatient (IN) | payer OTHER ==
[~2024-08-21] VITALS: Ht 167.6 cm; Wt 79.4 kg
[~2024-08-21 16:38] MED LIST changes: +CIPR-263 PO
[2024-08-21] MEDS ORDERED: DILTIAZEM HCL 50 MG IV ONE (17:38)
[2024-08-21 17:48] LABS: PLATELET COUNT (AUTO) 307 K/uL (150-450); RED BLOOD CELL COUNT(AUTO) 4.56 MIL/uL (4.5-6.0); RED CELL DISTRIBUTION WIDTH 13.3 % (11.5-15.0); WHITE BLOOD COUNT (AUTO) 5.6 K/uL (4.3-11.0)
[2024-08-21] MEDS: DILTIAZEM HCL 50 MG IV IV ONE (17:51)
[2024-08-21 17:55] LABS: CALCIUM, SERUM 9.2 mg/dL (8.5-10.1); CREATININE 1.1 mg/dL (0.6-1.3); SODIUM SERUM 138 mmol/L (136-145); UREA NITROGEN, BLOOD 17 mg/dL (7-18)
[2024-08-21 18:00] LABS: INR 0.97 (0.91-1.10)
[2024-08-21 18:01] LABS: ALCOHOL, BLOOD < 3 mg/dL (0-10); ASPARTATE AMINOTRANSFERASE 21 U/L (15-37); TOTAL PROTEIN, SERUM 7.4 g/dL (6.4-8.2)
[2024-08-21] MEDS ORDERED: IOHEXOL-350 100 ML VIAL IV ONE (18:05)
[2024-08-21] MEDS ORDERED: CT SWABBABLE VALVE TRANS SET 1 EA INFUS.SET MC ONE (18:05)
[2024-08-21] MEDS ORDERED: IV NS 0.9% 250 ML IV ONE (18:06)
[2024-08-21] MEDS ORDERED: AMLO-212 PO (19:59)
[2024-08-21] MEDS ORDERED: ICOS1CAP PO (19:59)
[2024-08-21] MEDS ORDERED: ISOS60TA72 PO (19:59)
[2024-08-21] MEDS ORDERED: TAMS-12 PO (19:59)
[2024-08-21] MEDS ORDERED: KERENDIA PO (19:59)
[2024-08-21] MEDS ORDERED: EMPA10TA PO (19:59)
[2024-08-21] MEDS ORDERED: ASPIRIN EC 325 MG TABLET.DR PO ONE (20:17)
[2024-08-21] MEDS: ASPIRIN EC 325 MG TABLET.DR PO ONE (20:22)
[2024-08-21] MEDS ORDERED: ACETAMINOPHEN 325 MG TABLET PO PRN (21:30)
[2024-08-21] MEDS ORDERED: ONDANSETRON HCL/PF 4 MG/2 ML VIAL IVP PRN (21:30)
[2024-08-21] MEDS ORDERED: MAG HYDROX/AL HYDROX/SIMETH 30 ML UDC PO PRN (21:30)
[2024-08-21] MEDS ORDERED: MAGNESIUM HYDROXIDE 30 ML UDC PO PRN (21:30)
[2024-08-21] MEDS ORDERED: Z GUARD REMEDY 4 OZ OINT TP PRN (21:30)
[2024-08-21 21:40] VITALS: BP 139/69; TEMP 98.1; O2SAT 98
[2024-08-21] MEDS: ENOXAPARIN SODIUM 40 MG/0.4 ML DISP.SYRIN SQ SCH (22:26)
[2024-08-21] MEDS ORDERED: DEXTROSE 50%-WATER 50 ML DISP.SYRIN IV PRN (23:00)
[2024-08-22] VITALS (7 sets, daily range): BP systolic 90–140; BP diastolic 52–75; TEMP 97.3–98.4; O2SAT 95–99
[2024-08-22 00:17] LABS: APPEARANCE,URINE CLEAR (CLEAR); BLOOD, URINE NEGATIVE Ery/uL (NEGATIVE); LEUKOCYTE ESTERASE ,URINE NEGATIVE (NEGATIVE); NITRITE, URINE NEGATIVE (NEGATIVE); UGLUCOSE 3+ mg/dL (NEGATIVE)
[2024-08-22 00:22] LABS: ADD URINE CULTURE NO; SQUAMOUS EPITHELIAL CELL,UR Few /HPF (None Seen)
[2024-08-22 00:36] LABS: AMPHETAMINE, URINE NEGATIVE (NEGATIVE); BARBITURATE, URINE NEGATIVE (NEGATIVE); BENZODIAZEPINE, URINE NEGATIVE (NEGATIVE); CANNABINOID, URINE NEGATIVE (NEGATIVE); COCCAINE, URINE NEGATIVE (NEGATIVE); OPIATE, URINE NEGATIVE (NEGATIVE)
[2024-08-22] MEDS: INSULIN REGULAR, HUMAN 100 UNIT/ML 3 ML VIAL SQ PRN (06:08)
[2024-08-22] MEDS: BLOOD SUGAR DIAGNOSTIC 1 EACH STRIP IN SCH (06:34)
[2024-08-22 07:14] LABS: PLATELET COUNT (AUTO) 310 K/uL (150-450); RED BLOOD CELL COUNT(AUTO) 4.41 MIL/uL (4.5-6.0); RED CELL DISTRIBUTION WIDTH 13.3 % (11.5-15.0); WHITE BLOOD COUNT (AUTO) 6.2 K/uL (4.3-11.0)
[2024-08-22 07:45] LABS: CALCIUM, SERUM 8.9 mg/dL (8.5-10.1); CREATININE 0.6 mg/dL (0.6-1.3); PHOSPHORUS 3.2 mg/dL (2.5-4.9); SODIUM SERUM 138 mmol/L (136-145); UREA NITROGEN, BLOOD 14 mg/dL (7-18)
[2024-08-22] MEDS: CLOPIDOGREL BISULFATE 75 MG TABLET PO SCH (08:31)
[2024-08-22] MEDS: AMLODIPINE BESYLATE 5 MG TABLET PO SCH (08:32)
[2024-08-22] MEDS: ATORVASTATIN 10 MG TABLET PO SCH (08:32)
[2024-08-22] MEDS: ISOSORBIDE MONONITRATE (30MG) 30 MG TAB.SR.24H PO SCH (08:32)
[2024-08-22] MEDS: ASPIRIN EC 81 MG TABLET.DR PO SCH (08:33)
[2024-08-22] MEDS: LOSARTAN POTASSIUM 25 MG TABLET PO SCH (08:33)
[2024-08-22] MEDS: TAMSULOSIN 0.4 MG CAP.SR.24H PO SCH (08:33)
[2024-08-22] MEDS: ENOXAPARIN SODIUM 40 MG/0.4 ML DISP.SYRIN SQ SCH (08:34)
[2024-08-22 08:52] LABS: LDL 45 mg/dL (0-99)
[2024-08-22] MEDS ORDERED: Medication Not On Formulary EA (Icosapent Ethyl (Vascepa) 2 GM) PO SCH (09:00)
[2024-08-22] MEDS ORDERED: DAPAGLIFLOZIN PROPANEDIOL 5 MG TABLET PO SCH (09:00)
[2024-08-22] MEDS: DRONEDARONE HYDROCHLORIDE 400 MG TABLET PO SCH (11:35)
[2024-08-23] VITALS: BP 103/61; TEMP 98.4; O2SAT 95
[2024-08-23 04:00] VITALS: BP 112/60; TEMP 98.2; O2SAT 98
[2024-08-23 06:25] LABS: PLATELET COUNT (AUTO) 292 K/uL (150-450); RED BLOOD CELL COUNT(AUTO) 4.24 MIL/uL (4.5-6.0); RED CELL DISTRIBUTION WIDTH 13.2 % (11.5-15.0); WHITE BLOOD COUNT (AUTO) 6.5 K/uL (4.3-11.0)
[2024-08-23 06:40] LABS: CALCIUM, SERUM 8.7 mg/dL (8.5-10.1); CREATININE 0.6 mg/dL (0.6-1.3); PHOSPHORUS 3.6 mg/dL (2.5-4.9); SODIUM SERUM 140.0 mmol/L (136-145); UREA NITROGEN, BLOOD 19.0 mg/dL (7-18)
[2024-08-23 07:30] VITALS: BP 125/81; TEMP 98.1; O2SAT 95
[2024-08-23 08:28] VITALS: BP 125/81
[2024-08-23 11:48] LABS: LDL 49 mg/dL (0-99)
[2024-08-23] MEDS ORDERED: DRON400T6 PO (12:45)
[2024-08-23] MEDS: EMPAGLIFLOZIN 10 MG TABLET PO SCH (14:20)
== END 2024-08-23 15:00 | disposition home health service (06) | DRG 310 ==
LOC: ER 16:56 → TELE 20:39
PROVIDERS: ADMIT Nurse Practitioner Acute Care
DX: I48.91 Unspecified atrial fibrillation (principal); I11.0 Hypertensive heart disease with heart failure; I50.9 Heart failure, unspecified; E11.9 Type 2 diabetes mellitus without complications; Z86.73 Personal history of transient ischemic attack (TIA), and cerebral infarction without residual deficits; Z95.5 Presence of coronary angioplasty implant and graft; I25.10 Atherosclerotic heart disease of native coronary artery without angina pectoris; R26.89 Other abnormalities of gait and mobility; K21.9 Gastro-esophageal reflux disease without esophagitis; Z88.3 Allergy status to other anti-infective agents; Z79.84 Long term (current) use of oral hypoglycemic drugs; Z79.899 Other long term (current) drug therapy; Z79.82 Long term (current) use of aspirin; Z79.02 Long term (current) use of antithrombotics/antiplatelets; Z91.81 History of falling; E78.5 Hyperlipidemia, unspecified; N40.0 Benign prostatic hyperplasia without lower urinary tract symptoms; R29.6 Repeated falls; Z87.442 Personal history of urinary calculi
CPT/HCPCS: 36415; 70450-TC; 70496-TC; 70498-TC; 71045-TC; 80048-TC; 80061-TC; 80076-TC; 81001; 82962-TC; 83735-TC; 84100-TC; 84443-TC; 84484-TC; 85025-TC; 85730-TC; 93307-TC; 97110-TC; 97116-TC; 97530-TC; 97535-TC; G0378; G0480; J1650; J1815; J3490; J7050; Q9967

== ENCOUNTER 2024-09-10 10:50 | Inpatient (IN) | payer OTHER, MEDICARE ==
[~2024-09-10] VITALS: Ht 182.9 cm; Wt 72.6 kg
[~2024-09-10 10:50] MED LIST changes: +AMLO-212 PO; -AMLO-213 PO; -CEPH-570 PO; -CIPR-263 PO; -DIPH50CA38 PO; +DRON400T6 PO; +EMPA10TA PO; +ICOS1CAP PO; +ISOS60TA72 PO; +KERENDIA PO; +TAMS-12 PO
[2024-09-10 11:26] LABS: PLATELET COUNT (AUTO) 265 K/uL (150-450); RED BLOOD CELL COUNT(AUTO) 4.83 MIL/uL (4.5-6.0); RED CELL DISTRIBUTION WIDTH 13.7 % (11.5-15.0); WHITE BLOOD COUNT (AUTO) 10.0 K/uL (4.3-11.0)
[2024-09-10 11:37] LABS: ASPARTATE AMINOTRANSFERASE 23 U/L (15-37); CALCIUM, SERUM 8.7 mg/dL (8.5-10.1); CREATININE 0.8 mg/dL (0.6-1.3); SODIUM SERUM 138 mmol/L (136-145); TOTAL PROTEIN, SERUM 7.3 g/dL (6.4-8.2); UREA NITROGEN, BLOOD 14 mg/dL (7-18)
[2024-09-10] MEDS: IV NS 0.9% 500 ML BAG IV ONE (11:37)
[2024-09-10 11:46] LABS: LACTIC ACID 2.4 mmol/L (0.4-2.0)
[2024-09-10] MEDS ORDERED: CEFTRIAXONE 1 G VIAL ONE (11:49)
[2024-09-10] MEDS: CEFTRIAXONE 1GM BAG (ER ONLY) 1 GM/50 ML PIGGYBACK IV ONE (11:56)
[2024-09-10 11:59] LABS: INR 1.0 (0.91-1.10)
[2024-09-10] MEDS: IV NS 0.9% 1,000 ML BAG IV ONE (12:47)
[2024-09-10 13:43] LABS: APPEARANCE,URINE CLEAR (CLEAR); BLOOD, URINE TRACE Ery/uL (NEGATIVE); LEUKOCYTE ESTERASE ,URINE TRACE (NEGATIVE); NITRITE, URINE POSITIVE (NEGATIVE); UGLUCOSE TRACE mg/dL (NEGATIVE)
[2024-09-10] MEDS ORDERED: ONDANSETRON HCL/PF 4 MG/2 ML VIAL IVP PRN (14:00)
[2024-09-10] MEDS ORDERED: ZOLPIDEM TARTRATE 5 MG TABLET PO PRN (14:00)
[2024-09-10] MEDS ORDERED: Z GUARD REMEDY 4 OZ OINT TP PRN (14:00)
[2024-09-10] MEDS ORDERED: MAGNESIUM HYDROXIDE 30 ML UDC PO PRN (14:00)
[2024-09-10] MEDS ORDERED: ACETAMINOPHEN 325 MG TABLET PO PRN (14:00)
[2024-09-10] MEDS ORDERED: MAG HYDROX/AL HYDROX/SIMETH 30 ML UDC PO PRN (14:00)
[2024-09-10 14:03] LABS: ADD URINE CULTURE YES; SQUAMOUS EPITHELIAL CELL,UR None Seen /HPF (None Seen)
[2024-09-10 14:04] LABS: URINE AMORPHOUS PHOSPHATES Moderate /HPF (None Seen)
[2024-09-10] MEDS ORDERED: DEXTROSE 50%-WATER 50 ML DISP.SYRIN IV PRN (14:30)
[2024-09-10] MEDS: IV 1/2NS 1000 ML 1,000 ML IV PRN (16:10)
[2024-09-10] MEDS: ENOXAPARIN SODIUM 40 MG/0.4 ML DISP.SYRIN SQ SCH (16:12)
[2024-09-10] MEDS: BLOOD SUGAR DIAGNOSTIC 1 EACH STRIP IN SCH (17:23)
[2024-09-10] MEDS: INSULIN REGULAR, HUMAN 100 UNIT/ML 3 ML VIAL SQ PRN (17:23)
[2024-09-10 20:00] VITALS: BP 155/65; TEMP 98.2; O2SAT 99
[2024-09-11] VITALS: BP 151/67; TEMP 98.2; O2SAT 99
[2024-09-11 04:00] VITALS: BP 151/80; TEMP 98.1; O2SAT 98
[2024-09-11 06:51] LABS: CREATININE 0.7 mg/dL (0.6-1.3); SODIUM SERUM 140.0 mmol/L (136-145); UREA NITROGEN, BLOOD 10.0 mg/dL (7-18)
[2024-09-11 07:09] LABS: CALCIUM, SERUM 8.8 mg/dL (8.5-10.1)
[2024-09-11] MEDS: PANTOPRAZOLE 40 MG TABLET.DR PO SCH (07:28)
[2024-09-11 07:46] LABS: PLATELET COUNT (AUTO) 252 K/uL (150-450); RED BLOOD CELL COUNT(AUTO) 4.50 MIL/uL (4.5-6.0); RED CELL DISTRIBUTION WIDTH 13.4 % (11.5-15.0); WHITE BLOOD COUNT (AUTO) 8.2 K/uL (4.3-11.0)
[2024-09-11 08:00] VITALS: BP 145/79; TEMP 98.2; O2SAT 96
[2024-09-11] MEDS: CEFTRIAXONE 1 G in IV D5W 50 ML IV SCH (11:03)
[2024-09-11] MEDS: AMLODIPINE BESYLATE 5 MG TABLET PO SCH (12:53)
[2024-09-11] MEDS: LOSARTAN POTASSIUM 25 MG TABLET PO SCH (12:53)
[2024-09-11 16:00] VITALS: BP 147/82; TEMP 97.7; O2SAT 95
[2024-09-11] MEDS ORDERED: Medication Not On Formulary EA (Icosapent Ethyl (Vascepa) 2 GM) PO SCH (17:00)
[2024-09-11 20:00] VITALS: BP 121/71; TEMP 98.1; O2SAT 95
[2024-09-12 04:00] VITALS: BP 133/89; TEMP 98.9; O2SAT 99
[2024-09-12 07:19] LABS: PLATELET COUNT (AUTO) 244 K/uL (150-450); RED BLOOD CELL COUNT(AUTO) 4.77 MIL/uL (4.5-6.0); RED CELL DISTRIBUTION WIDTH 13.6 % (11.5-15.0); WHITE BLOOD COUNT (AUTO) 8.6 K/uL (4.3-11.0)
[2024-09-12 07:43] LABS: CALCIUM, SERUM 8.8 mg/dL (8.5-10.1); CREATININE 0.7 mg/dL (0.6-1.3); PHOSPHORUS 3.1 mg/dL (2.5-4.9); SODIUM SERUM 140.0 mmol/L (136-145); UREA NITROGEN, BLOOD 10.0 mg/dL (7-18)
[2024-09-12 08:00] VITALS: BP 130/77; TEMP 98.4; O2SAT 95
[2024-09-12] MEDS: ASPIRIN EC 81 MG TABLET.DR PO SCH (08:14)
[2024-09-12] MEDS: TAMSULOSIN 0.4 MG CAP.SR.24H PO SCH (08:15)
[2024-09-12] MEDS: ISOSORBIDE MONONITRATE (30MG) 30 MG TAB.SR.24H PO SCH (08:15)
[2024-09-12] MEDS: ATORVASTATIN 10 MG TABLET PO SCH (08:16)
[2024-09-12] MEDS: EMPAGLIFLOZIN 10 MG TABLET PO SCH (08:16)
[2024-09-12] MEDS: CLOPIDOGREL BISULFATE 75 MG TABLET PO SCH (08:17)
[2024-09-12] MEDS: POTASSIUM CHLORIDE 20 MEQ POWDER PACKET PO ONE (11:22)
[2024-09-12 16:39] VITALS: BP 113/49; TEMP 99.3; O2SAT 94
[2024-09-12 20:00] VITALS: BP 112/52; TEMP 99; O2SAT 95
[2024-09-13 04:00] VITALS: BP 112/52; TEMP 99.7; O2SAT 94
[2024-09-13 08:00] VITALS: BP 112/76; TEMP 99.5; O2SAT 96
[2024-09-13 08:07] LABS: FOLIC ACID 12.9 ng/mL (>3.0)
[2024-09-13 08:14] LABS: CALCIUM, SERUM 8.7 mg/dL (8.5-10.1); CREATININE 1.0 mg/dL (0.6-1.3); SODIUM SERUM 139.0 mmol/L (136-145); UREA NITROGEN, BLOOD 19.0 mg/dL (7-18)
[2024-09-13 16:00] VITALS: BP 122/53; TEMP 97.7; O2SAT 94
[2024-09-13] MEDS ORDERED: POLYVINYL ALCOHOL 15 ML BOTTLE EACHEYE PRN (19:00)
[2024-09-13 20:00] VITALS: BP 144/77; TEMP 98.4; O2SAT 96
[2024-09-14 04:00] VITALS: BP 114/77; TEMP 98.6; O2SAT 95
[2024-09-14] MEDS: MECLIZINE HCL 25 MG TABLET PO SCH (05:08)
[2024-09-14 08:00] VITALS: BP 130/59; TEMP 97.5; O2SAT 95
[2024-09-14 08:03] LABS: CALCIUM, SERUM 9.1 mg/dL (8.5-10.1); CREATININE 1.0 mg/dL (0.6-1.3); SODIUM SERUM 140.0 mmol/L (136-145); UREA NITROGEN, BLOOD 18.0 mg/dL (7-18)
[2024-09-14 16:00] VITALS: BP 152/55; TEMP 98.1; O2SAT 94
[2024-09-14 19:35] LABS: LDL 101 mg/dL (0-99)
[2024-09-14 20:00] VITALS: BP 147/73; TEMP 97.7; O2SAT 97
[2024-09-14] MEDS ORDERED: CT SWABBABLE VALVE TRANS SET 1 EA INFUS.SET MC ONE (23:28)
[2024-09-14] MEDS ORDERED: IV NS 0.9% 250 ML IV ONE (23:28)
[2024-09-14] MEDS ORDERED: IOHEXOL-350 100 ML VIAL IV ONE (23:28)
[2024-09-15] VITALS: BP 151/71; TEMP 98.1; O2SAT 95
[2024-09-15 04:00] VITALS: BP 154/72; TEMP 98.4; O2SAT 94
[2024-09-15 07:14] LABS: CALCIUM, SERUM 9.8 mg/dL (8.5-10.1); CREATININE 1.3 mg/dL (0.6-1.3); SODIUM SERUM 143.0 mmol/L (136-145); UREA NITROGEN, BLOOD 26.0 mg/dL (7-18)
[2024-09-15 08:00] VITALS: BP 147/74; TEMP 98.1; O2SAT 94
[2024-09-15 12:00] VITALS: BP 143/75; TEMP 97.9; O2SAT 99
[2024-09-15 12:25] LABS: PLATELET COUNT (AUTO) 247 K/uL (150-450); RED BLOOD CELL COUNT(AUTO) 5.14 MIL/uL (4.5-6.0); RED CELL DISTRIBUTION WIDTH 14.0 % (11.5-15.0); WHITE BLOOD COUNT (AUTO) 10.2 K/uL (4.3-11.0)
[2024-09-15] MEDS: ATORVASTATIN 10 MG TABLET PO SCH (14:04)
[2024-09-15] MEDS: APIXABAN 5 MG TABLET PO SCH (14:07)
[2024-09-15 16:00] VITALS: BP 135/79; TEMP 97.6; O2SAT 96
[2024-09-15 16:44] LABS: APPEARANCE,URINE CLEAR (CLEAR); BLOOD, URINE TRACE-INTA Ery/uL (NEGATIVE); LEUKOCYTE ESTERASE ,URINE NEGATIVE (NEGATIVE); NITRITE, URINE NEGATIVE (NEGATIVE); UGLUCOSE 3+ mg/dL (NEGATIVE)
[2024-09-15 16:46] LABS: CREATININE, URINE 58.0 MG/DL (30.0-125.0); URINE SODIUM, RANDOM 43.0 mmol/l (40-220); URINE TOTAL PROTEIN 34.5 mg/dL (0-11.9)
[2024-09-15 16:52] LABS: AMPHETAMINE, URINE NEGATIVE (NEGATIVE); BARBITURATE, URINE NEGATIVE (NEGATIVE); BENZODIAZEPINE, URINE NEGATIVE (NEGATIVE); CANNABINOID, URINE NEGATIVE (NEGATIVE); COCCAINE, URINE NEGATIVE (NEGATIVE); OPIATE, URINE NEGATIVE (NEGATIVE)
[2024-09-15 17:07] LABS: ADD URINE CULTURE NO
[2024-09-15 17:36] LABS: EOSINOPHIL,URINE None Seen
[2024-09-15 19:07] LABS: METHYLMALONIC ACID 68.0 nmol/L (0-378)
[2024-09-15 20:00] VITALS: BP 132/48; TEMP 99.1; O2SAT 97
[2024-09-16] VITALS: BP 129/87; TEMP 98.2; O2SAT 99
[2024-09-16 04:00] VITALS: BP 123/65; TEMP 97.5; O2SAT 96
[2024-09-16 06:46] LABS: PLATELET COUNT (AUTO) 249 K/uL (150-450); RED BLOOD CELL COUNT(AUTO) 4.94 MIL/uL (4.5-6.0); RED CELL DISTRIBUTION WIDTH 13.5 % (11.5-15.0); WHITE BLOOD COUNT (AUTO) 8.8 K/uL (4.3-11.0)
[2024-09-16 07:07] LABS: CALCIUM, SERUM 9.5 mg/dL (8.5-10.1); CREATININE 1.2 mg/dL (0.6-1.3); PHOSPHORUS 3.5 mg/dL (2.5-4.9); SODIUM SERUM 145.0 mmol/L (136-145); UREA NITROGEN, BLOOD 37.0 mg/dL (7-18)
[2024-09-16 08:00] VITALS: BP 133/70; TEMP 98.6; O2SAT 95
[2024-09-16 09:07] LABS: VITAMIN B1 THIAMINE,WB 128.1 nmol/L (66.5-200.0)
[2024-09-16 12:00] VITALS: BP 114/64; TEMP 97.7; O2SAT 97
[2024-09-16] MEDS ORDERED: APIX5TAB PO (14:43)
[2024-09-16 16:00] VITALS: BP 110/69; TEMP 98.2; O2SAT 96
[2024-09-16 20:00] VITALS: BP 121/77; TEMP 99.3; O2SAT 99
[2024-09-17] VITALS: BP 143/66; TEMP 98.2; O2SAT 97
[2024-09-17 04:00] VITALS: BP 139/83; TEMP 98.1; O2SAT 96
[2024-09-17 07:00] LABS: CALCIUM, SERUM 9.1 mg/dL (8.5-10.1); CREATININE 0.8 mg/dL (0.6-1.3); SODIUM SERUM 144.0 mmol/L (136-145); UREA NITROGEN, BLOOD 33.0 mg/dL (7-18)
[2024-09-17 08:00] VITALS: BP 119/94; TEMP 98.1; O2SAT 95
[2024-09-17 08:44] VITALS: BP 119/94
[2024-09-18] MEDS ORDERED: ATORVASTATIN 40 MG TABLET PO SCH (09:00)
== END 2024-09-17 12:15 | DRG 689 ==
LOC: ER 10:52 → TELE1 13:10 → MEDSG1 09-11 08:14 → TELE1 09-14 21:41
PROVIDERS: ATTEND Nurse Practitioner Acute Care
DX: N39.0 Urinary tract infection, site not specified (principal); G93.41 Metabolic encephalopathy; I63.9 Cerebral infarction, unspecified; I69.351 Hemiplegia and hemiparesis following cerebral infarction affecting right dominant side; N17.9 Acute kidney failure, unspecified; I25.10 Atherosclerotic heart disease of native coronary artery without angina pectoris; N40.0 Benign prostatic hyperplasia without lower urinary tract symptoms; I48.91 Unspecified atrial fibrillation; K21.9 Gastro-esophageal reflux disease without esophagitis; E11.65 Type 2 diabetes mellitus with hyperglycemia; Z79.899 Other long term (current) drug therapy; Z95.5 Presence of coronary angioplasty implant and graft; Z88.8 Allergy status to other drugs, medicaments and biological substances; Z79.82 Long term (current) use of aspirin; Z79.02 Long term (current) use of antithrombotics/antiplatelets; B96.89 Other specified bacterial agents as the cause of diseases classified elsewhere; I10 Essential (primary) hypertension; E78.5 Hyperlipidemia, unspecified; Z79.01 Long term (current) use of anticoagulants; Z79.84 Long term (current) use of oral hypoglycemic drugs; Z87.440 Personal history of urinary (tract) infections; R29.6 Repeated falls
CPT/HCPCS: 36415; 70450-TC; 70496-TC; 70498-TC; 70551-TC; 71045-TC; 72170-TC; 76770-TC; 80048-TC; 80061-TC; 80076-TC; 81001; 82570-TC; 82607-TC; 82962-TC; 83605-TC; 83735-TC; 83921; 84100-TC; 84300-TC; 84425; 84443-TC; 84484-TC; 85025-TC; 85730-TC; 87040-TC; 87086-TC; 92526; 92611; 97110-TC; 97112-TC; 97116-TC; 97164; 97530-TC; 97535-TC; A4223; A4349; G0378; J0696; J1650; J1815; J3490; J7030; J7040; J7050; J7060; J8597; Q9967